=== PATIENT | male | born 1935 | race African-American/Black ===

== ENCOUNTER 2020-12-02 19:23 | Observation (INO) | payer MEDICARE ==
[~2020-12-02] VITALS: Ht 188 cm; Wt 81.6 kg
[~2020-12-02 19:23] MED LIST: ASPIRIN81 MG PO; DONEPEZIL HCL10 MG PO; ERGOCALCIF50000 UNIT PO; FLOMAX0.4 MG PO; GLUCOPHAGE1000 MG PO; KEFLEX500 MG PO; MAGNESIUM OXID500 MG PO; MIRALAX17 GM PO; NIASPAN1000 MG PO; NORVASC5 MG PO; PROPECIA1 MG PO; PROTONIX40 MG PO; VITAMIN C500 M1 PO; ZOCOR20 MG PO
[2020-12-02 19:52] VITALS: BP 101/53
[2020-12-02 19:57] LABS: BASOPHILS 0.3 % (0-2); EOSINOPHILS 1.5 % (0-7); HEMATOCRIT 33.4 % (42.0-54.0); HEMOGLOBIN 10.9 g/dL (13.5-17.5); IMMATURE GRANULOCYTES 0.1 % (0-5); LYMPHOCYTE ABS# 1.14 10x3/uL (1.32-3.57); LYMPHOCYTES 16.7 % (15-50); MCH 30.4 pg (26.0-34.0); MCHC 32.6 g/dL (31.0-37.0); MCV 93.3 fL (80.0-100.0); MEAN PLATELET VOLUME 9.9 fL (7.4-10.4); MONOCYTES 8.5 % (2-11); NEUTROPHIL ABS# 4.99 10x3/uL (1.78-5.38); NEUTROPHILS 72.9 % (40-80); RBC 3.58 10x6/uL (4.20-6.10); RDW 14.2 % (11.5-14.5); WBC 6.8 10x3/uL (4.8-10.8)
[2020-12-02 20:01] LABS: PLATELET COUNT 145 10x3/uL (130-400)
[2020-12-02 20:04] LABS: INR 1.11 (0.85-1.17); PROTIME 13.3 SECONDS (11.6-15.0)
[2020-12-02 20:05] LABS: CALC OSMOLALITY 287 mosm/kg (275-300); CALCIUM 10.1 mg/dL (8.5-10.1); CARBON DIOXIDE 23.4 mmol/L (21.0-32.0); CHLORIDE - SERUM 106 mmol/L (98-107); CREATININE - SERUM 1.3 mg/dL (0.6-1.3); GLUCOSE 136 mg/dL (74-106); POTASSIUM - SERUM 3.7 mmol/L (3.5-5.1); SODIUM 143 mmol/L (136-145); UREA NITROGEN 15 mg/dL (7-18); eGFR NON AFRICAN AMERICAN 55 mL/min (90-120)
[2020-12-02 20:21] LABS: ALKALINE PHOSPHATASE 47 U/L (30-120); ALT (SGPT) 12 U/L (10-68); BILIRUBIN - TOTAL 0.32 mg/dL (0.2-1.3); CKMB 0.4 U/L (0.0-3.6); CREATINE KINASE 31 UL (21-232); MAGNESIUM - SERUM 1.4 mg/dL (1.8-2.4); PRO BNP 334 pg/mL (0-450); THYROID STIMULATING HORMONE 2.23 uIU/mL (0.36-3.74); TROPONIN-I < 0.017 ng/mL (0.000-0.060)
[2020-12-02 20:27] LABS: D-DIMER-QUANTITATIVE 0.3 ug/mLFEU (0.20-0.54)
[2020-12-02 23:56] VITALS: BP 132/57
[2020-12-03 00:12] VITALS: BP 132/57; Ht 188 cm; Wt 81.6 kg
--- NOTE | 2020-12-03 04:15 | NUR ---
PT PRESSED CL. STATED HE NEEDED A BED CHANGE BC HE HAD AN INCONTINENT VOID. SCANT AMOUNT OF BRIGHT RED BLOOD NOTED ON SHEET NEAR BUTTOX. NO PRESSURE SORES OR WOUNDS OF ANY KIND OBSERVED. OCCULT BLOOD STOOL IS ORDERED. WILL CONT TO MONITOR.
[2020-12-03 05:35] LABS: BASOPHILS 0.1 % (0-2); EOSINOPHILS 0.7 % (0-7); HEMATOCRIT 33.7 % (42.0-54.0); HEMOGLOBIN 11.1 g/dL (13.5-17.5); IMMATURE GRANULOCYTES 0.1 % (0-5); LYMPHOCYTE ABS# 1.23 10x3/uL (1.32-3.57); LYMPHOCYTES 16.7 % (15-50); MCH 30.3 pg (26.0-34.0); MCHC 32.9 g/dL (31.0-37.0); MCV 92.1 fL (80.0-100.0); MEAN PLATELET VOLUME 10.3 fL (7.4-10.4); MONOCYTES 9.1 % (2-11); NEUTROPHIL ABS# 5.39 10x3/uL (1.78-5.38); NEUTROPHILS 73.3 % (40-80); PLATELET COUNT 162 10x3/uL (130-400); RBC 3.66 10x6/uL (4.20-6.10); RDW 14.2 % (11.5-14.5); RETIC 1.28 % (0.45-2.28); WBC 7.4 10x3/uL (4.8-10.8)
[2020-12-03 05:37] VITALS: BP 128/69
[2020-12-03 05:55] VITALS: BP 122/69
[2020-12-03 06:30] LABS: ALBUMIN 3.1 g/dL (3.4-5.0); ANION GAP 11.7 mmol/L (8-16); BILIRUBIN - TOTAL 0.33 mg/dL (0.2-1.3); CALCIUM 9.5 mg/dL (8.5-10.1); CARBON DIOXIDE 27.7 mmol/L (21.0-32.0); CREATININE - SERUM 1.1 mg/dL (0.6-1.3); MAGNESIUM - SERUM 1.2 mg/dL (1.8-2.4); POTASSIUM - SERUM 3.4 mmol/L (3.5-5.1); PROTEIN - SERUM 6.3 g/dL (6.4-8.2)
[2020-12-03 06:32] LABS: % SATURATION 31 % (15-55); IRON 61 ug/dl (35-150); TOTAL IRON BIND CAPACITY 195 ug/dl (260-445); UNSAT IRON BIND CAPACITY 134 ug/dl (150-375)
--- NOTE | 2020-12-03 07:40 | NUR ---
LYING IN BED, AWAKE/ALERT/CONFUSED, ENCOURAGED TO T/R SELF FREQUENTLY, INCONT OF B/B WITH USE OF INCONT PADS AND A CONDOM CATHETERK, DENIES PAIN/OTHER DISCOMFORT AT THIS TIME, CALL LIGHT/PHONE/WATER WITHIN REACH, NO S/S OF ACUTE DISTRESS OBSERVED.
[2020-12-03 07:54] VITALS: BP 90/52
[2020-12-03] MEDS ORDERED: K-TAB10 MEQ PO (10:58)
[2020-12-03] MEDS ORDERED: MAG-OXIDE400 MG PO (10:59)
--- NOTE | 2020-12-03 11:28 | MORECARE ---
CASE MANAGEMENT DISCHARGE SUMMARY PATIENT: SILVA GONZALES UNIT: [id number] ADM DATE: 12/02/20 AGE: 85 : 34 SEX: M ROOM/BED: D.211 AUTHOR: SERGIO PERERA PHYSICIAN: REFERRING PHYSICIAN: PARUL PRIETO DO DATE OF SERVICE: 12/03/20 Discharge Plan Patient Name: SILVA GONZALES [facility] : 1935 Planned Disposition: Home Anticipated Discharge Date: Discharge Date: Expected LOS: Initial Reviewer: [email or web address] Initial Review Date: 12/03/2020 Generated: 12/03/20 12:28 pm External Providers External Provider: [facility] [facility] Next Contact Date: Service Request Date: Service Type: Resolution: Reviewer: Comments: Patient Name: SILVA GONZALES Page 05509 at 1128 All edits/amendments must be made on the electronic document DICTATION DATE: 12/03/20 1128 RETAIL SOLAR ADVISOR: HERB 12/03/20 1128 RPT#: [id number] DC DATE: STATUS: ADM IN [facility] [address] [place] [address] END OF REPORT
--- NOTE | 2020-12-03 11:43 | MORECARE ---
CASE MANAGEMENT DISCHARGE SUMMARY PATIENT: SILVA GONZALES UNIT: [id number] ADM DATE: 12/02/20 AGE: 85 : 34 SEX: M ROOM/BED: D.2112 AUTHOR: SERGIO PERERA PHYSICIAN: REFERRING PHYSICIAN: PARUL PRIETO DO DATE OF SERVICE: 12/03/20 Discharge Plan Patient Name: SILVA GONZALES Facility: [facility]:[place] : 1935 Planned Disposition: Home with Home Health Anticipated Discharge Date: Discharge Date: Expected LOS: Initial Reviewer: [email or web address] Initial Review Date: 12/03/2020 Generated: 12/03/20 12:43 pm Comments DCP- Discharge Planning Updated by [email or web address]: Aniya Pabon on 12/03/20 10:[address] Patient Name: SILVA GONZALES Admission Status: ER Accout number: [id number] Admission Date: 12-02-2020 : 1935 Admission Diagnosis: Attending: PARUL PRIETO Current LOS: 1 Anticipated DC Date: Planned Disposition: Home Primary Insurance: [employer] CHOICE PPO MCR ADVANT Discharge Planning Comments: CM spoke with Lexus Ford, patient's daughter about discharging today. I informed her that the physician has ordered a palliative care consult. She states that she does not want to talk about that with me that she has been speaking with [facility] nurse about hospice. I informed her there was a difference between hospice and palliative care. She agrees with discharge today via ambulance service and would like a call when they know approximate time of discharge. Nurse to call [phone]. I gave adolescent coordinator the number. I called [facility] and spoke with Lala, patient is current with them. I informed patient is in OBS status and going home today and would like them to speak with daughter about their palliative care program. CM will continue to follow and assist with discharge planning/needs. Fire Engine Operator: Aniya Pabon Last DP export: 12/03/20 10:28 a Patient Name: SILVA GONZALES Page [phone] at 1143 All edits/amendments must be made on the electronic document DICTATION DATE: 12/03/20 1143 TESTER SEMICONDUCTOR PACKAGES: HERB 12/03/20 1143 RPT#: [id number] DC DATE: STATUS: ADM IN [facility] [address] [place] [address] END OF REPORT
[2020-12-03 12:00] VITALS: BP 128/60
--- NOTE | 2020-12-03 13:57 | NUR ---
EMS HERE TO TRANSPORT HOME.
--- NOTE | 2020-12-06 07:43 | MORECARE ---
CASE MANAGEMENT DISCHARGE SUMMARY PATIENT: SILVA GONZALES UNIT: [id number] ADM DATE: 12/02/20 AGE: 85 : 34 SEX: M ROOM/BED: D.2112 AUTHOR: SERGIO PERERA PHYSICIAN: REFERRING PHYSICIAN: PARUL PRIETO DO DATE OF SERVICE: 12/06/20 Discharge Plan Patient Name: SILVA GONZALES Facility: [facility]:[place] : 1935 Planned Disposition: Home with Home Health Anticipated Discharge Date: Discharge Date: 12/03/2020 Expected LOS: Initial Reviewer: [email or web address] Initial Review Date: 12/03/2020 Generated: 12/06/20 8:42 am Comments DCP- Discharge Planning Updated by [email or web address]: Aniya Pabon on 12/03/20 10:[address] Patient Name: SILVA GONZALES Admission Status: ER Accout number: [id number] Admission Date: 12-02-2020 : 1935 Admission Diagnosis: Attending: PARUL PRIETO Current LOS: 1 Anticipated DC Date: Planned Disposition: Home Primary Insurance: [employer] CHOICE PPO MCR ADVANT Discharge Planning Comments: CM spoke with Lexus Ford, patient's daughter about discharging today. I informed her that the physician has ordered a palliative care consult. She states that she does not want to talk about that with me that she has been speaking with [facility] nurse about hospice. I informed her there was a difference between hospice and palliative care. She agrees with discharge today via ambulance service and would like a call when they know approximate time of discharge. Nurse to call [phone]. I gave flower stripper the number. I called [facility] and spoke with Lala, patient is current with them. I informed patient is in OBS status and going home today and would like them to speak with daughter about their palliative care program. CM will continue to follow and assist with discharge planning/needs. Application Spec: Aniya Pabon Last DP export: 12/03/20 10:43 a Patient Name: SILVA GONZALES Page 08873 at 0743 All edits/amendments must be made on the electronic document DICTATION DATE: 12/06/2042 RD PROJECT MANAGER: HERB 12/06/2042 RPT#: [id number] DC DATE:12/03/20 STATUS: DIS IN [facility] [address] [place] [address] END OF REPORT
== END 2020-12-03 12:30 | disposition home or self-care (01) ==
LOC: D.ER 19:23 → OBSVTIME 21:05 → D.EDHOLD 21:05 → D.M2 21:05
PROVIDERS: Family Medicine; ADMIT Family Medicine; ATTEND Family Medicine
DX: R55 Syncope and collapse (principal); E83.42 Hypomagnesemia; G30.9 Alzheimer's disease, unspecified; F02.80 Dementia in other diseases classified elsewhere, unspecified severity, without behavioral disturbance, psychotic disturbance, mood disturbance, and anxiety; R11.2 Nausea with vomiting, unspecified; Z95.0 Presence of cardiac pacemaker; N40.0 Benign prostatic hyperplasia without lower urinary tract symptoms; I10 Essential (primary) hypertension; K21.9 Gastro-esophageal reflux disease without esophagitis; Z79.84 Long term (current) use of oral hypoglycemic drugs; E11.65 Type 2 diabetes mellitus with hyperglycemia; D64.9 Anemia, unspecified

== ENCOUNTER 2020-12-11 16:59 | Inpatient (IN) | payer MEDICARE ==
[~2020-12-11] VITALS: Ht 188 cm; Wt 62.2 kg
--- NOTE | ~2020-12-11 | HEMODYNAMI ---
PATIENT:SILVA GONZALES MEDICAL RECORD: [id number] : 33 LOCATION:[facility] ADMISSION DATE: 12/12/20 Generatedon:113:52 Patient name: SILVA GONZALES Patient #: [id number] SSN: [id number] : 1935 Date of study: 12/14/2020 Page: Of Hemodynamic Procedure Report Patient Data Patient Demographics Procedure consent was obtained First Name: SILVA Gender: Male Last Name: CHRISTIAN : 1935 Middle Initial: MARY Age: 85 year(s) Patient #: [id number] Race: Black SSN: [id number] Additional ID: [id number] Contact details [address]: [address] [place] [address] State: [place] City: [place] Zip code: [address] Past Medical History Allergies: No known allergies Admission Admission Data Admission Date: 12/12/2020 Admission Time: 17:24 Room #: D. Lab Results Lab Result Date: 12/14/2020 Lab Result Time: 0:00 Biochemistry Name Units Result Min Max BUN mg/dl 10 --(-*--)-- 7 18 Creatinine mg/dl 0.9 --(-*--)-- 0.6 1.3 eGFR ml/min 90 --(*---)-- 90 120 AM CBC Name Units Result Min Max Hemoglobin g/dl 10 *-(----)-- 13.5 17.5 Procedure Procedure Types Cath Procedure Diagnostic Procedure PPM/ICD Permanent Pacer Lead Repos. Sedation Charges Moderate Sedation 25-39 minutes Procedure Description Procedure Date Procedure Date: 12/14/2020 Procedure Start Time: 13:18 Procedure End Time: 13:49 Procedure Staff Name Function Adriel Driver MD Performing Physician Nannette Bae RT Monitor Clementine Torres RT Scrub Ab Leach RN Nurse Miguel Hickman MD Assisting physician Procedure Data Cath Procedure Fluoroscopy Diagnostic fluoroscopy Total fluoroscopy Time: 3.9 time: 3.9 min min Diagnostic fluoroscopy Total fluoroscopy dose: dose: 48.57 mGy 48.57 mGy Estimated blood loss: 10 ml Procedure Complications No complications Procedure Medications Medication Administration Route Dosage 0.9% NaCl I.V. 100 ml/hr Oxygen etCO2 Nasal cannula 2 l/min Lidocaine 1% added to field 20 Ancef (1Gm/50ml NS) I.V.P.B 1 g Ancef Irrigation 1 g (1gm/500ml NS) Versed I.V. 1 mg Fentanyl I.V. 50 mcg Hemodynamics Rest HGB: 10 (g/dl) Heart Rate: 89 (bpm) Snapshots Pre Cath Intra NCS Post Cath Vital Signs Time Heart Resp SPO2 etCO2 NIBP (mmHg) Rhythm Pain Sedation Rate (ipm) (%) (mmHg) Status Level (bpm) 13:00:23 90 17 99 0 143/79(113) NSR 0 (11) 10(A) , No pain 13:04:37 63 13 100 32.4 129/71(109) NSR 0 (11) 10(A) , No pain 13:08:43 95 19 100 33.2 130/80(114) NSR 0 (11) 10(A) , No pain 13:12:51 70 12 100 28.7 128/75(110) NSR 0 (11) 10(A) , No pain 13:17:01 61 15 100 31.7 124/68(99) NSR 0 (11) 10(A) , No pain 13:21:00 107 14 98 34.7 137/90(111) NSR 0 (11) 9(A) , No pain 13:25:13 58 14 100 20.4 133/66(105) NSR 0 (11) 9(A) , No pain 13:29:22 68 14 99 30.2 124/70(104) NSR 0 (11) 9(A) , No pain 13:33:32 53 11 99 31.7 128/61(107) NSR 0 (11) 9(A) , No pain 13:37:42 101 12 100 30.1 122/66(101) Paced 0 (11) 9(A) , No pain 13:41:42 112 13 98 30.9 122/84(99) Paced 0 (11) 9(A) , No pain 13:45:44 97 12 99 29.4 118/81(100) Paced 0 (11) 9(A) , No pain 13:49:47 78 12 30.2 119/74(96) Paced 0 (11) 9(A) , No pain Medications Time Medication Route Dose Verified Delivered Reason Notes Effectiv eness by by 13:09:42 0.9% NaCl I.V. 100 Ab Ab for low 02 ml/hr Lorigan Lorigan sats RN RN 13:09:50 Oxygen etCO2 2 Ab Ab for low 02 Nasal l/min Lorigan Lorigan sats cannula RN RN 13:10:03 Lidocaine added 20ml Ab Ab for local 1% to vial Lorigan Lorigan anesthetic field x2 RN RN 13:10:16 Ancef I.V.P.B 1 g Ab Ab Per (1Gm/50ml Lorigan Lorigan physician NS) RN RN 13:10:42 Ancef Topical 1 g Ab Ab used for Irrigation added Lorigan Lorigan procedure (1gm/500ml to the RN RN NS) field 13:10:58 Versed I.V. 1 mg Ab Ab for Lorigan Lorigan sedation RN RN 13:11:13 Fentanyl I.V. 50 Ab Ab for mcg Lorigan Lorigan sedation RN armature rewinder Log Time Note 12:39:55 Informed consent obtained and on chart 12:40:27 Procedure Status PPM/ Gen Change/ Lead Revision/ Temp. 12:40:28 Time tracking: Regular hours (M-F 7:00 - 5:00) 12:40:31 Plan of Care:Comfort level will be maintained., Respiratory function will remain adequate., Patient/ family verbilizes understanding of procedure., Procedure tolerated without complication., Recovers from procedure without complications.. 12:40:33 Ab Leach RN sent for patient. Start room use. 12:40:50 Patient allergic to No known allergies 12:59:10 Warm blankets applied, and karel hugger turned on for patient comfort. 12:59:11 Correct patient and procedure confirmed by team. 12:59:11 ECG and BP/O2 sat monitors applied to patient. 12:59:12 Vital chart was started 12:59:13 Baseline sample Acquired. 12:59:20 Rhythm: paced 12:59:23 Full Disclosure recording started 12:59:41 H&P Date Dictated: 12/14/2020 Within 30 days and on chart.. 12:59:43 Pre-procedure instructions explained to patient. 12:59:46 Family unavailable. 12:59:50 Patient NPO since Midnight. 12:59:54 Is the patient allergic to Iodine/contrast media? N/A. 13:00:16 Is patient on blood thinner?No 13:00:18 Patient diabetic? No. 13:00:25 Snore? Yes 13:00:27 Sleep apnea? No 13:00:29 Sticks out tongue? No 13:00:34 Dentures? No ? 13:00:44 IV patent on arrival in left forearm with 0.9% NaCl at [facility]. 13:00:49 Lab results completed and on chart. 13::23 Lab Result : BUN 10 mg/dl 13::23 Lab Result : Creatinine 0.9 mg/dl 13::23 Lab Result : eGFR AM 90 ml/min 13::23 Lab Result : Hemoglobin 10 g/dl 13:01:57 Left chest area was prepped with dura-prep and draped in sterile fashion 13:01:58 Alarms reviewed by R. N. 13:01:58 Sharps counted by scrub and verified by R.N. 13:01:59 Physician paged 13:02:34 Physician arrived 13:02:36 --------ALL STOP TIME OUT------ 13:02:37 Final Timeout: patient, procedure, and site verified with staff and physician. All members of the team are in agreement. 13:09:42 0.9% NaCl 100 ml/hr I.V. was administered by Ab Leach RN; for low 02 sats; Verbal order read back and verified. 13:09:50 Oxygen 2 l/min etCO2 Nasal cannula was administered by Ab Leach RN; for low 02 sats; Verbal order read back and verified. 13:10:03 Lidocaine 1% 20ml vial x2 added to field was administered by Ab Leach RN; for local anesthetic; Verbal order read back and verified. 13:10:16 Ancef (1Gm/50ml NS) 1 g I.V.P.B was administered by Ab Leach RN; Per physician; Verbal order read back and verified. 13:10:42 Ancef Irrigation (1gm/500ml NS) 1 g Topical added to the field was administered by Ab Leach RN; used for procedure; Verbal order read back and verified. 13:10:58 Versed 1 mg I.V. was administered by Ab Leach RN; for sedation; Verbal order read back and verified. 13:11:13 Fentanyl 50 mcg I.V. was administered by Ab Leach RN; for sedation; Verbal order read back and verified. 13:11:59 Left chest site verified by team. 13:12:08 Fire Safety Assessment: A--An alcohol-based skin anteseptic being used preoperatively., C--Open oxygen or nitrous oxide is being used., D--An ESU, laser, or fiber-optic light is being used. 13:12:12 Physical assessment completed. ASA score P 3 - A patient with severe systemic disease as per Adriel Driver MD. 13:12:17 Sedation plan: IV Moderate Sedation Medication:Versed, Fentanyl 13:12:32 Use device set JENNIFER PPM 13:12:38 2-0 Ticron Multipack ([id number]) opened to sterile field. 13:12:38 3-0 Vicryl Single Pack [id number] opened to sterile field. 13:12:39 5-0 Monocryl PS2 [id number] opened to sterile field. 13:12:40 Cautery Tip Mandarin Teacher opened to sterile field. 13:12:41 Cautery Pushbutton Pencil opened to sterile field. 13:12:42 Mepilex Dressing ([id number]) opened to sterile field. 13:17:19 Procedure started. 13:18:26 Medtronic account maintenance representative Rudi Americo present for procedure. 13:18:31 Grounding pad site Left thigh. 13:18:33 Grounding pad site free from injury. 13:18:41 Lidocaine 1% was administered to left subclavicular area by Miguel Hickman MD . 13:18:44 Incision made to left subclavicular area. 13:21:55 Generator pocket made/opened. 13:23:46 Ventricular lead repositioned. 13:23:51 Atrial lead repositioned. 13:24:30 Ventricular lead tested. 13:24:34 Atrial lead tested. 13:35:26 PPM Dual was attached to lead(s) and inserted into pocket. 13:35:36 Device pocket was irrigated with Ancef. 13:35:44 Ventricular lead attachment was completed with 2-0 silk. 13:35:49 Atrial lead attachment was completed with 2-0 silk. 13:35:54 Generator was sutured in place with 2-0 silk. 13:39:07 Parameters-- Generator: Mode: DDDR. Lower Rate: 60bpm. Upper Rate: 120bpm. 13:40:20 Parameters--Ventricular P/R Wave: 5.5mV. Current: .5mA; Threshold: .5V; Impedence: 751OHMS. 13:40:57 Parameters--Atrial P/R Wave: 1.2mV. Current: .12mA; Threshold: .7V; Impedence: 387OHMS. 13:41:24 Lt Chest incision was dressed with Mepilex dressing. 13:45:22 Procedure ended.(Physican Out) 13:45:38 Fluoroscopy time 03.90 minutes. 13:45:49 Fluoroscopy dose: 48.57 mGy 13:45:49 Flurop Dose total: 48.57 13:45:54 Dose Area Product 738 mGy/cm. 13:46:46 Insertion/operative site no bleeding no hematoma. 13:47:08 Post-procedure physical assessment completed. ASA score P 3 - A patient with severe systemic disease as per Adriel Driver MD. 13:47:13 Post procedure rhythm: paced 13:47:17 Estimated blood loss: 10 ml 13:47:35 Patient needs reinforcement of post procedure teaching. 13:48:20 Procedure type changed to Cath procedure, Diagnostic procedure, PPM/ICD, Permanent Pacer Lead Repos., Sedation Charges, Moderate Sedation 25-39 minutes 13:48:55 Procedure and supply charges have been captured, reviewed, submitted and are correct. 13:49:29 Procedure Complication : No complications 13:49:32 Vital chart was stopped 13:49:40 Operative report dictated upon procedure completion. 13:49:42 See physician's report for complete and final results. 13:49:44 Report given to [facility]. 13:49:47 Patient transfered to [facility] with Bed. 13:49:49 Procedure ended. 13:49:49 Full Disclosure recording stopped 13:49:52 End room use (Document Last) 13:49:52 End room use (Document Last) 13:50:42 End room use (Document Last) 13:51:20 End room use (Document Last) Device Usage Item Name Manufacture Quantity Catalog Hospital Part Current Minimal Lot# / Number Charge Number Stock Stock Serial# Code 2-0 Ticron Ethicon 8 [id number] 65584 [id number] 5 Multipack ([id number]) 3-0 Vicryl Ethicon 1 [id number] 741531 112724 720683 5 Single Pack [id number] 5-0 Monocryl Ethicon 1 Y495G 668084 703732 049419 5 PS2 Y495G Cautery Tip Microtek 1 [id number] 706362 199084 997684 5 Mandarin [employer] Cautery Microtek 1 [id number] 193454 34897 354104 5 Pushbutton [employer] Pencil Mepilex Cardinal 1 [id number] 591026 023112 905338 5 [employer] (790645) Signature Audit [place] Stage Time Signature Unsigned Intra-Procedure 12/14/2020 Nannette Bae 1:50:42 PM RT(R) Intra-Procedure 12/14/2020 Adriel Johnson 1:51:20 PM Lucien JOHNSON Intra-Procedure 12/14/2020 Ab 1:52:44 PM Haylee [place] [place] [address] [place] [address]
--- NOTE | ~2020-12-11 | OP ---
PATIENT NAME: SILVA GONZALES MEDICAL RECORD: [id number] :[birth year] LOCATION:D.MS [facility] ADMISSION DATE:12/12/20 SURGEON: MANDY RODRIGUEZ MD DATE OF OPERATION: 12/14/2020 PREOPERATIVE DIAGNOSES: 1. Displaced pacemaker leads. 2. Sick sinus syndrome. 3. Dementia. POSTOPERATIVE DIAGNOSES: 1. Displaced pacemaker leads. 2. Sick sinus syndrome. 3. Dementia. PROCEDURE: Revision of left subclavian vein leads. SURGEON: Mandy Rodriguez MD CO-SURGEON: Adriel Corea MD DESCRIPTION OF PROCEDURE: The patient's left chest was prepped and draped in sterile fashion. A 20 mL of 1% lidocaine with epinephrine was infused into the surrounding tissues. Transverse incision was made on the left superior lateral chest and a subcutaneous pouch was made overlying the pacemaker generator. The generator was freed up from its sutures and was eviscerated through the wound. We then freed up the sutures that were present on the 2 leads and disconnected the leads from the generator. At this point, Dr. Corea repositioned the leads appropriately until they were functioning well. Once the leads were noted to be in good position in the atrium and ventricle, then, they were sutured down to the pectoral fascia with interrupted 2-0 Ti-Cron. The leads were affixed to the pacemaker, which was placed into the subcutaneous pouch and sutured down with interrupted 2-0 TiCron. The wound bed was irrigated out with antibiotic solution. The subcutaneous tissues were reapproximated with interrupted 3-0 Vicryl and the skin was closed with running subcutaneous 5-0 Monocryl. COMPLICATIONS: None. CONDITION: Stable. ANESTHESIA: Local MAC. BLOOD LOSS: 30 mL. TRANSINT:[id number] Voice Confirmation ID: [id number] DOCUMENT ID: [id number] MANDY RODRIGUEZ MD CC: [id number] DICTATION DATE: 12/14/20 1348 WOOD CHOPPER: 12/14/20 1843 ADM IN [place] [id number] [place] [id number]
[~2020-12-11 16:59] MED LIST changes: +K-TAB10 MEQ PO; +MAG-OXIDE400 MG PO
[2020-12-11 18:17] LABS: BASOPHILS 0.1 % (0-2); EOSINOPHILS 1.6 % (0-7); HEMATOCRIT 36.2 % (42.0-54.0); HEMOGLOBIN 11.9 g/dL (13.5-17.5); IMMATURE GRANULOCYTES 0.1 % (0-5); LYMPHOCYTE ABS# 0.94 10x3/uL (1.32-3.57); LYMPHOCYTES 13.9 % (15-50); MCHC 32.9 g/dL (31.0-37.0); MCV 94.3 fL (80.0-100.0); MEAN PLATELET VOLUME 10.8 fL (7.4-10.4); MONOCYTES 9.2 % (2-11); NEUTROPHIL ABS# 5.05 10x3/uL (1.78-5.38); NEUTROPHILS 75.1 % (40-80); PLATELET COUNT 173 10x3/uL (130-400); RBC 3.84 10x6/uL (4.20-6.10); RDW 15.1 % (11.5-14.5); WBC 6.7 10x3/uL (4.8-10.8)
--- NOTE | 2020-12-11 18:38 | NUR ---
VENIPUNCTURE PERFORMED AND SENT WITH SENIOR FINANCIAL REPORTING ACCOUNTANT.
[2020-12-11 18:45] VITALS: BP 117/60
[2020-12-11 18:50] LABS: CALC OSMOLALITY 279 mosm/kg (275-300); CALCIUM 10.3 mg/dL (8.5-10.1); CARBON DIOXIDE 25.1 mmol/L (21.0-32.0); CHLORIDE - SERUM 103 mmol/L (98-107); CREATININE - SERUM 1.3 mg/dL (0.6-1.3); POTASSIUM - SERUM 3.9 mmol/L (3.5-5.1); SODIUM 138 mmol/L (136-145); UREA NITROGEN 18 mg/dL (7-18); eGFR NON AFRICAN AMERICAN 55 mL/min (90-120)
[2020-12-11 18:51] LABS: APTT 25.2 SECONDS (22.8-39.4); INR 1.06 (0.85-1.17); PROTIME 12.8 SECONDS (11.6-15.0)
[2020-12-11 18:53] LABS: GLUCOSE 129 mg/dL (74-106)
[2020-12-11 19:07] LABS: ALBUMIN 3.3 g/dL (3.4-5.0); ALKALINE PHOSPHATASE 47 U/L (30-120); ALT (SGPT) 15 U/L (10-68); BILIRUBIN - TOTAL 0.37 mg/dL (0.2-1.3); CKMB 0.3 U/L (0.0-3.6); CREATINE KINASE 33 UL (21-232); MAGNESIUM - SERUM 1.3 mg/dL (1.8-2.4); PROTEIN - SERUM 6.6 g/dL (6.4-8.2); TROPONIN-I < 0.017 ng/mL (0.000-0.060)
[2020-12-11 19:38] LABS: BILIRUBIN NEGATIVE (NEGATIVE); KETONE SMALL mg/dL (NEGATIVE); NITRITE NEGATIVE (NEGATIVE); UROBILINOGEN NORMAL mg/dL (< 2)
[2020-12-11 19:42] LABS: WHITE CELLS - URINE 0-5 HPF (0-1)
[2020-12-11 19:43] LABS: AMORPHOUS SEDIMENT MODERATE LPF (NONE SEEN); BACTERIA FEW HPF (NONE SEEN); SQUAMOUS EPITHELIAL 0-5 HPF (0-4)
[2020-12-12] VITALS (8 sets, daily range): BP systolic 97–141; BP diastolic 59–77; BMI 17.6
--- NOTE | 2020-12-12 01:18 | NUR ---
REPORT TO MAIRA
--- NOTE | 2020-12-12 04:00 | NUR ---
Assumed care of pt at 0140 when pt arrived on unit on stretcher transported by ED nurse. Pt Alert and oriented to self. ED staff told this nurse she brought him up right away when his heart rate went Anil to 40 and after calling Rasta for pacer check. Report for pacer check recieved back during transfer from stretcher to bed in pt room. Pt is calm and denies pain/discomfort but, unable to assist with transfer r/t weakness. Pt is a poor historian and much of the information for assessment obtained from prior records and staff in ED. Meditron report called to LEDY Beyer o/c with new order for Cardiology consult obtained and 12 lead ECG requested before calling. Meditron litigation claim representative also called and stated he would be calling the Owner Consulting Engineer. Ezekieltron birdie came to floor and this nurse was told Ventricular lead was turned off and Atrial lead was increased to full. Tech did speak with o/c for Cardiology after and this nurse had spoken with same in between. Tele also ordered for this pt and he has remained 60 and SR since the Tech adjusted pacemaker. Pt in bed resting at this time with IV fluids running per patent IV. Pt continues to deny any pain/discomfort.
[2020-12-12 07:02] LABS: ALBUMIN 2.7 g/dL (3.4-5.0); ANION GAP 12.3 mmol/L (8-16); BILIRUBIN - TOTAL 0.29 mg/dL (0.2-1.3); CALCIUM 9.4 mg/dL (8.5-10.1); CARBON DIOXIDE 26.2 mmol/L (21.0-32.0); CREATININE - SERUM 1.1 mg/dL (0.6-1.3); POTASSIUM - SERUM 3.5 mmol/L (3.5-5.1); PROTEIN - SERUM 5.5 g/dL (6.4-8.2)
[2020-12-12 07:29] LABS: BASOPHILS 0.2 % (0-2); EOSINOPHILS 1.8 % (0-7); HEMATOCRIT 33.7 % (42.0-54.0); HEMOGLOBIN 11.2 g/dL (13.5-17.5); IMMATURE GRANULOCYTES 0.2 % (0-5); LYMPHOCYTE ABS# 1.45 10x3/uL (1.32-3.57); LYMPHOCYTES 23.2 % (15-50); MCHC 33.2 g/dL (31.0-37.0); MCV 93.4 fL (80.0-100.0); MEAN PLATELET VOLUME 10.2 fL (7.4-10.4); MONOCYTES 7.8 % (2-11); NEUTROPHIL ABS# 4.19 10x3/uL (1.78-5.38); NEUTROPHILS 66.8 % (40-80); PLATELET COUNT 181 10x3/uL (130-400); RBC 3.61 10x6/uL (4.20-6.10); RDW 15.1 % (11.5-14.5); WBC 6.3 10x3/uL (4.8-10.8)
[2020-12-12 08:05] LABS: APTT 29.1 SECONDS (22.8-39.4); INR 1.09 (0.85-1.17); PROTIME 13.1 SECONDS (11.6-15.0)
[2020-12-12 08:39] LABS: MAGNESIUM - SERUM 1.2 mg/dL (1.8-2.4)
[2020-12-12 08:41] LABS: PHOSPHOROUS 1.5 mg/dL (2.5-4.9)
--- NOTE | 2020-12-12 14:53 | CN ---
PATIENT NAME:SILVA GONZALES MEDICAL RECORD: [id number] : [birth year] LOCATION:D.MS [facility] ADMIT DATE: 12/11/20 ACCOUNT: [id number] CONSULTING PHYSICIAN: LETA BENITO MD REFERRING PHYSICIAN: LIDIA AARON MD DATE OF CONSULTATION: 12/12/2020 HISTORY OF PRESENT ILLNESS: The patient is an 85-year-old black Faroese male with history of sick sinus syndrome -- status post a permanent pacemaker placement, and chronic dementia, who was admitted with some syncope episodes. The patient was noted to have bradycardia in the 30-40's with pacemaker malfunction. The patient's pacemaker evaluated via Medtronic rep. I asked to evaluate from a cardiovascular standpoint. PAST MEDICAL HISTORY: Significant for; 1. Sick sinus syndrome -- permanent pacemaker -- pacemaker malfunction. 2. Bradycardia. 3. Syncope episodes. 4. Hypertension. 5. Chronic dementia. PHYSICAL EXAMINATION: GENERAL: Elderly black male, sitting, in no apparent distress. VITAL SIGNS: Blood pressure 140s over 70s, pulse 90s (regular). HEENT: Sclerae are muddy; conjunctivae pink. NECK: Supple; no appreciated JVD. HEART: Has got a regular rhythm and rate, II/ systolic outflow murmur. LUNGS: Clear bilaterally. Chest wall, left significant for pacemaker generator. ABDOMEN: Benign. EXTREMITIES: Negative for edema. NEUROLOGIC: Nonfocal. LABORATORY DATA: Hemoglobin and hematocrit 11.2 and 33.7, platelet count is 181. Sodium 143, potassium 3.5, BUN 18, creatinine 1.1, troponin 0.017 (negative). Telemetry, normal sinus rhythm at 95 beats per minute. MEDICATIONS: Outpatient: 1. Aricept 10 mg daily. 2. Flomax 0.4 mg daily. 3. Zocor 20 mg daily. 4. Aspirin 81 mg daily. 5. Norvasc 5 mg daily. ASSESSMENT AND PLAN: 1. Sick sinus syndrome -- permanent pacemaker -- pacemaker malfunction. 2. Syncope episodes. 3. Hypertension. 4. Hyperlipidemia. 5. Chronic dementia. PLAN: Continue current medical management at this time. The patient's pacemaker evaluated and reprogrammed for the time being in view of a Medtronic CONSULT REPORT [id number] SILVA GONZALES rep. The patient will be scheduled for further evaluation and possible lead replacement or insertion in the morning by Dr. Corea. Further recommendations as clinically indicated. Thank you for allowing me to participate in the care of this patient. TRANSINT:[id number] Voice Confirmation ID: [id number] DOCUMENT ID: [id number] LETA BENITO MD at 1453 CC: [id number] DICTATION DATE: 12/12/20 09 GAS ENGINE OPERATOR GENERATORS: 12/12/20 1436 ADM IN [place] [address] [place] [address]
--- NOTE | 2020-12-13 03:02 | NUR ---
HAS RESTED WELL THIS SHIFT. NO COMPLAINTS OF CHEST PAIN OR DISCOMFORT VOICED. TELEMETRY SHOWS PACED RHYTHM AT 60 BPM. MUCH MORE ALERT TONIGHT. MORE TALKATIVE. ENCOURAGED TO CALL FOR ASSISTANCE NEEDED. CALL LIGHT IN EASY REACH. SAFETY ROUNDS MADE.
[2020-12-13 06:51] LABS: BASOPHILS 0.2 % (0-2); HEMATOCRIT 30.8 % (42.0-54.0); HEMOGLOBIN 10.4 g/dL (13.5-17.5); IMMATURE GRANULOCYTES 0.2 % (0-5); LYMPHOCYTE ABS# 1.25 10x3/uL (1.32-3.57); MCH 30.9 pg (26.0-34.0); MCHC 33.8 g/dL (31.0-37.0); MONOCYTES 12.5 % (2-11); NEUTROPHIL ABS# 3.07 10x3/uL (1.78-5.38); NEUTROPHILS 59.1 % (40-80); PLATELET COUNT 163 10x3/uL (130-400); RBC 3.37 10x6/uL (4.20-6.10); RDW 14.7 % (11.5-14.5); WBC 5.2 10x3/uL (4.8-10.8)
[2020-12-13 06:53] LABS: CALCIUM 9.3 mg/dL (8.5-10.1); CARBON DIOXIDE 27.4 mmol/L (21.0-32.0); CHLORIDE - SERUM 105 mmol/L (98-107); GLUCOSE 88 mg/dL (74-106); MAGNESIUM - SERUM 1.1 mg/dL (1.8-2.4); MCV 91.4 fL (80.0-100.0); POTASSIUM - SERUM 3.3 mmol/L (3.5-5.1); SODIUM 137 mmol/L (136-145)
[2020-12-13 06:54] LABS: CALC OSMOLALITY 271 mosm/kg (275-300); CREATININE - SERUM 0.8 mg/dL (0.6-1.3); PHOSPHOROUS 2.5 mg/dL (2.5-4.9); UREA NITROGEN 11 mg/dL (7-18); eGFR NON AFRICAN AMERICAN > 90 mL/min (90-120)
--- NOTE | 2020-12-13 07:30 | NUR ---
RECIEVED BEDSIDE REPORT. PATIENT IN BED, AROUSES TO VOICE. DENIES NEEDS AT THIS TIME. BED LOW POSITION, CALL LIGHT IN REACH. FREE FROM SIGNS OF DISTRESS. WILL CONTINUE TO MONITOR.
[2020-12-13 09:04] VITALS: BP 142/69
[2020-12-13 12:21] VITALS: BP 151/63
[2020-12-13 12:40] VITALS: Ht 188 cm; Wt 62.2 kg
--- NOTE | 2020-12-13 13:38 | NUR ---
IN BED. DENIES NEEDS AT THIS TIME. BED LOW POSITION. CALL LIGHT IN REACH. WILL CONTINUE TO MONITOR.
--- NOTE | 2020-12-13 16:09 | NUR ---
PATIENT WALKED INTO BATHROOM AND AROUND IN ROOM WITH MIN ASST WITH WALKER FOR 15 FEET.
[2020-12-13 16:13] VITALS: BP 102/65
--- NOTE | 2020-12-13 16:57 | NUR ---
OT NOTE: PT COMPLETED SUPINE TO SIT WITH SBA. PT COMPLETED SIT TO STAND WITH CGA. PT COMPLETED BUE AROM EXS AT EOB WITH SBA. [phone] THANK YOU,NAVJOT ENRIQUE
[2020-12-13 19:51] VITALS: BP 125/64
[2020-12-14] VITALS (10 sets, daily range): BP systolic 122–139; BP diastolic 62–72
[2020-12-14 05:16] LABS: BASOPHILS 0.2 % (0-2); EOSINOPHILS 2.8 % (0-7); HEMATOCRIT 29.7 % (42.0-54.0); IMMATURE GRANULOCYTES 0.2 % (0-5); LYMPHOCYTE ABS# 1.23 10x3/uL (1.32-3.57); LYMPHOCYTES 24.6 % (15-50); MCH 31.3 pg (26.0-34.0); MCHC 33.7 g/dL (31.0-37.0); MCV 93.1 fL (80.0-100.0); MEAN PLATELET VOLUME 10.4 fL (7.4-10.4); NEUTROPHIL ABS# 3.07 10x3/uL (1.78-5.38); NEUTROPHILS 61.2 % (40-80); PLATELET COUNT 172 10x3/uL (130-400); RBC 3.19 10x6/uL (4.20-6.10); RDW 14.9 % (11.5-14.5)
[2020-12-14 05:20] LABS: CALC OSMOLALITY 277 mosm/kg (275-300); CALCIUM 8.6 mg/dL (8.5-10.1); CARBON DIOXIDE 25.8 mmol/L (21.0-32.0); CHLORIDE - SERUM 107 mmol/L (98-107); CREATININE - SERUM 0.9 mg/dL (0.6-1.3); GLUCOSE 91 mg/dL (74-106); MAGNESIUM - SERUM 1.5 mg/dL (1.8-2.4); PHOSPHOROUS 2.7 mg/dL (2.5-4.9); POTASSIUM - SERUM 3.9 mmol/L (3.5-5.1); SODIUM 140 mmol/L (136-145); UREA NITROGEN 10 mg/dL (7-18); eGFR NON AFRICAN AMERICAN 85 mL/min (90-120)
--- NOTE | 2020-12-14 05:49 | NUR ---
Pt has rested well in bed this noc. Did have daughter in at HS. Remains alert and oriented to self and placeintermittently. Denies pain/discomfort. K+ given per protocol during Noc and lab draw this AM done 4 hours after. K+ now WNL. MG however, was 1.5 and protocol was followed for same. Pt remains asymptomatic of electrolyte imbalances. Did utilize call light once last night to request urinal, otherwise, pt has been incontinent.
--- NOTE | 2020-12-14 07:26 | NUR ---
RECIEVED BEDSIDE REPORT. PATIENT IN BED. DENIES NEEDS AT THIS TIME. BED LOW POSITION, CALL LIGHT IN REACH. EARLENE ALARM ON. WILL CONTINUE TO MONITOR.
--- NOTE | 2020-12-14 11:38 | NUR ---
PATIENT WALKED 40 FEET WITH MIN ASST WITH A WALKER.
--- NOTE | 2020-12-14 12:50 | NUR ---
PATIENT LEFT UNIT VIA BED TO PROCEDURE AT THIS TIME.
[2020-12-14 14:25] LABS: CALC OSMOLALITY 282 mosm/kg (275-300); CALCIUM 8.6 mg/dL (8.5-10.1); CARBON DIOXIDE 24.2 mmol/L (21.0-32.0); CHLORIDE - SERUM 108 mmol/L (98-107); CREATININE - SERUM 0.9 mg/dL (0.6-1.3); GLUCOSE 100 mg/dL (74-106); POTASSIUM - SERUM 3.9 mmol/L (3.5-5.1); SODIUM 142 mmol/L (136-145); UREA NITROGEN 12 mg/dL (7-18); eGFR NON AFRICAN AMERICAN 85 mL/min (90-120)
[2020-12-14 14:28] LABS: HEMATOCRIT 31.3 % (42.0-54.0); HEMOGLOBIN 10.5 g/dL (13.5-17.5); MCH 31.1 pg (26.0-34.0); MCHC 33.5 g/dL (31.0-37.0); MCV 92.6 fL (80.0-100.0); MEAN PLATELET VOLUME 10.5 fL (7.4-10.4); RBC 3.38 10x6/uL (4.20-6.10); WBC 4.9 10x3/uL (4.8-10.8)
--- NOTE | 2020-12-14 14:29 | NUR ---
PATIENT BACK TO UNIT VIA BED FROM PROCEDURE. POST OP VITAL SIGNS STARTED. WILL CONTINUE TO MONITOR.
--- NOTE | 2020-12-14 15:57 | NUR ---
OT NOTE: PT COMPLETED SUPINE TO SIT WITH MIN A/CGA. PT COMPLETED SIT TO STAND WITH CGA. PT COMPLETED ADL MOB WITH CGA USING RW. PT COMPLETED ORAL CARE WITH MIN A. PT COMPLETED FACE HYGIENE WITH SETUP. PT REQUIRED MOD A FOR MARYA LOCK. [phone] THANK YOU,NAVJOT ENRIQUE
[2020-12-14 16:06] LABS: APTT 36.1 SECONDS (22.8-39.4); INR 1.19 (0.85-1.17)
[2020-12-15 00:27] VITALS: BP 142/70
[2020-12-15 04:00] VITALS: BP 134/75
[2020-12-15 06:12] LABS: BASOPHILS 0.2 % (0-2); EOSINOPHILS 2.9 % (0-7); HEMATOCRIT 31.7 % (42.0-54.0); HEMOGLOBIN 10.7 g/dL (13.5-17.5); IMMATURE GRANULOCYTES 0.2 % (0-5); LYMPHOCYTE ABS# 1.14 10x3/uL (1.32-3.57); LYMPHOCYTES 20.5 % (15-50); MCH 30.7 pg (26.0-34.0); MCHC 33.8 g/dL (31.0-37.0); MCV 91.1 fL (80.0-100.0); MEAN PLATELET VOLUME 10.1 fL (7.4-10.4); MONOCYTES 10.8 % (2-11); NEUTROPHIL ABS# 3.64 10x3/uL (1.78-5.38); NEUTROPHILS 65.4 % (40-80); PLATELET COUNT 176 10x3/uL (130-400); RBC 3.48 10x6/uL (4.20-6.10); RDW 14.7 % (11.5-14.5); WBC 5.6 10x3/uL (4.8-10.8)
[2020-12-15 06:30] LABS: CALC OSMOLALITY 276 mosm/kg (275-300); CALCIUM 8.5 mg/dL (8.5-10.1); CARBON DIOXIDE 27.8 mmol/L (21.0-32.0); CHLORIDE - SERUM 106 mmol/L (98-107); CREATININE - SERUM 0.8 mg/dL (0.6-1.3); GLUCOSE 88 mg/dL (74-106); MAGNESIUM - SERUM 1.8 mg/dL (1.8-2.4); POTASSIUM - SERUM 3.6 mmol/L (3.5-5.1); SODIUM 140 mmol/L (136-145); UREA NITROGEN 9 mg/dL (7-18); eGFR NON AFRICAN AMERICAN > 90 mL/min (90-120)
[2020-12-15 08:12] VITALS: BP 140/72
--- NOTE | 2020-12-15 10:27 | NUR ---
0700 - RECEIVED PATIENT FROM OFFGOING NURSE, RESTING QUIETLY IN BED WITH NO S/SX OF DISTRESS. LEFT ARM IN SHOULDER SLING WITH DRESSING TO LEFT CHEST CDI. WILL CONTINUE TO MONITOR.
--- NOTE | 2020-12-15 12:10 | MORECARE ---
CASE MANAGEMENT DISCHARGE SUMMARY PATIENT: SILVA GONZALES UNIT: [id number] ADM DATE: 12/12/20 AGE: 85 : 34 SEX: M ROOM/BED: D.2201 AUTHOR: SERGIO PERERA PHYSICIAN: REFERRING PHYSICIAN: LIDIA AARON MD DATE OF SERVICE: 12/15/20 Discharge Plan Patient Name: SILVA GONZALES Facility: [facility]:[place] : 1935 Planned Disposition: Home with Home Health Anticipated Discharge Date: Discharge Date: Expected LOS: Initial Reviewer: [email or web address] Initial Review Date: 12/11/2020 Generated: 12/15/20 1:10 pm Patient Name: SILVA GONZALES Page [id number] at 1210 All edits/amendments must be made on the electronic document DICTATION DATE: 12/15/20 1210 CONTRACT ANALYST: HERB 12/15/20 1210 RPT#: [id number] DC DATE: STATUS: ADM IN [facility] [address] [place] [address] END OF REPORT
--- NOTE | 2020-12-15 12:23 | MORECARE ---
CASE MANAGEMENT DISCHARGE SUMMARY PATIENT: SILVA GONZALES UNIT: [id number] ADM DATE: 12/12/20 AGE: 85 : 34 SEX: M ROOM/BED: D.2201 AUTHOR: SERGIO PERERA PHYSICIAN: REFERRING PHYSICIAN: LIDIA AARON MD DATE OF SERVICE: 12/15/20 Discharge Plan Patient Name: SILVA GONZALES Facility: [facility]:[place] : 1935 Planned Disposition: Home with Home Health Anticipated Discharge Date: Discharge Date: Expected LOS: Initial Reviewer: [email or web address] Initial Review Date: 12/11/2020 Generated: 12/15/20 1:23 pm DCPIA - Discharge Planning Initial Assessment Updated by [email or web address]: Gwendolyn Lake on 12/15/20 12:19 pm * Is the patient Alert and Oriented? Yes * [facility] * Preadmission Environment Home with Family * ADLs Partial Dependent * Partial ADLs (Assistance needed) Bathing Medication Management * Equipment Rolling Walker * List name and contact numbers for known caregivers / representatives who currently or will assist patient after discharge: MARCELA [phone] * Verbal permission to speak to the caregivers and representatives has been obtained from the patient. N/A * Community resources currently utilized Home Health * Please name any agencies selected above. [facility] * Additional services required to return to the preadmission environment? Yes * Can the patient safely return to the preadmission environment? Yes * Has this patient been hospitalized within the prior 30 days at any hospital? Yes Last DP export: 12/15/20 11:10 a Patient Name: SILVA GONZALES Page 76802 at 1223 All edits/amendments must be made on the electronic document DICTATION DATE: 12/15/20 1223 AUTOMATIC STEEL TIE ADJUSTER: HERB 12/15/20 1223 RPT#: [id number] DC DATE: STATUS: ADM IN [facility] [address] [place] [address] END OF REPORT
[2020-12-15 12:24] VITALS: BP 132/73
--- NOTE | 2020-12-15 12:36 | MORECARE ---
CASE MANAGEMENT DISCHARGE SUMMARY PATIENT: SILVA GONZALES UNIT: [id number] ADM DATE: 12/12/20 AGE: 85 : 34 SEX: M ROOM/BED: D.2201 AUTHOR: TREVERDOC PHYSICIAN: REFERRING PHYSICIAN: LIDIA AARON MD DATE OF SERVICE: 12/15/20 Discharge Plan Patient Name: SILVA GONZALES Facility: [facility]:[place] : 1935 Planned Disposition: Home with Home Health Anticipated Discharge Date: Discharge Date: Expected LOS: Initial Reviewer: [email or web address] Initial Review Date: 12/11/2020 Generated: 12/15/20 1:36 pm Comments DCP- Discharge Planning Updated by [email or web address]: Gwendolyn Lake on 12/15/20 11:[address] Patient Name: SILVA GONZALES Admission Status: ER Accout number: [id number] Admission Date: 12-12-2020 : 1935 Admission Diagnosis:MECH COMPL OF OTHER CARDIAC ELECTRONIC DEVICE, INIT ENC Attending: SOULEYMANE Current LOS: 3 Anticipated DC Date: Planned Disposition: Home with Home Health Primary Insurance: [employer] CHOICE PPO [facility] Discharge Planning Comments: CM met spoke with patient's daughter to complete initial dc planning assessment. CM educated patient on the CM role and verbal consent given by patient to complete assessment. Patient lives at home with his daughters where he is partially independent with his care. At discharge patient plans to return home with his daughter and feels this is a safe discharge. Marcela will be his straddle truck driver home. CM discussed availability of home health, rehab services, and medical equipment. He is current with [facility] and will resume them at discharge. He has a walker at home that he uses. Marcela expressed concern about him walking with PT and to make sure he was fixed this time. I have re-consulted PT now that he has had the lead provision to make sure he is safe to DC home. Marcela will need to be notified when PT has been evaluated him. Her number is [phone]. CM will continue to follow and will assist as needed with dc plans/needs Sampler Radioactive Waste: Gwendolyn Lake DCPIA - Discharge Planning Initial Assessment Updated by [email or web address]: Gwendolyn Lake on 12/15/20 12:19 pm * Is the patient Alert and Oriented? Yes * [facility] * Preadmission Environment Home with Family * ADLs Partial Dependent * Partial ADLs (Assistance needed) Bathing Medication Management * Equipment Rolling Walker * List name and contact numbers for known caregivers / representatives who currently or will assist patient after discharge: MARCELA [phone] * Verbal permission to speak to the caregivers and representatives has been obtained from the patient. N/A * Community resources currently utilized Home Health * Please name any agencies selected above. [facility] * Additional services required to return to the preadmission environment? Yes * Can the patient safely return to the preadmission environment? Yes * Has this patient been hospitalized within the prior 30 days at any hospital? Yes Last DP export: 12/15/20 11:23 a Patient Name: SILVA GONZALES Page [phone] at 1236 All edits/amendments must be made on the electronic document DICTATION DATE: 12/15/20 1236 PERSONNEL SECURITY ASSISTANT: HERB 12/15/20 1236 RPT#: [id number] DC DATE: STATUS: ADM IN [facility] [address] [place] [address] END OF REPORT
--- NOTE | 2020-12-15 16:12 | NUR ---
OT NOTE: PT COMPLETED ORAL HYGIENE WITH SETUP. PT COMPLETED FACE HYGIENE WITH SETUP. PT REQUIRED MAX A FOR HAND/NAIL HYGIENE. [phone] HORTENSIA LOCO COTA
--- NOTE | 2020-12-15 16:13 | NUR ---
PATIENT LEFT ARM IN SLING, SAT PATIENT AT SIDE OF BED WITH MIN ASST. WILL WALK IN CARMICHAEL TOMORROW.
[2020-12-15 17:04] VITALS: BP 147/81
[2020-12-15 20:18] VITALS: BP 144/74
--- NOTE | 2020-12-15 22:50 | NUR ---
pt resting in bed, watching tv. pt was in no pain nor distress at the time. call light in reach with bed in lowest position.
[2020-12-16 00:29] VITALS: BP 138/70
[2020-12-16 04:00] VITALS: BP 140/76
[2020-12-16 06:55] LABS: BASOPHILS 0.4 % (0-2); EOSINOPHILS 3.8 % (0-7); HEMATOCRIT 32.8 % (42.0-54.0); HEMOGLOBIN 10.9 g/dL (13.5-17.5); LYMPHOCYTE ABS# 1.33 10x3/uL (1.32-3.57); LYMPHOCYTES 27.8 % (15-50); MCH 30.3 pg (26.0-34.0); MCHC 33.2 g/dL (31.0-37.0); MCV 91.1 fL (80.0-100.0); MEAN PLATELET VOLUME 10.2 fL (7.4-10.4); NEUTROPHIL ABS# 2.58 10x3/uL (1.78-5.38); PLATELET COUNT 169 10x3/uL (130-400); RDW 14.7 % (11.5-14.5); WBC 4.8 10x3/uL (4.8-10.8)
[2020-12-16 07:20] LABS: CALC OSMOLALITY 275 mosm/kg (275-300); CALCIUM 8.5 mg/dL (8.5-10.1); CARBON DIOXIDE 27.7 mmol/L (21.0-32.0); CHLORIDE - SERUM 106 mmol/L (98-107); CREATININE - SERUM 0.8 mg/dL (0.6-1.3); GLUCOSE 81 mg/dL (74-106); MAGNESIUM - SERUM 1.6 mg/dL (1.8-2.4); POTASSIUM - SERUM 3.8 mmol/L (3.5-5.1); SODIUM 139 mmol/L (136-145); UREA NITROGEN 10 mg/dL (7-18); eGFR NON AFRICAN AMERICAN > 90 mL/min (90-120)
[2020-12-16 08:31] VITALS: BP 141/76
--- NOTE | 2020-12-16 12:49 | NUR ---
Nutrition follow-up: Diet order: consistent CHO PO inake ~75% average of meals Labs reviewed; glucose under good control Wt: 137# +BM PO intake is good at this time Will continue to provide food choices and honor food preferences; offer Gluccatherine Tapia Follow-up: 12/20/20
[2020-12-16 12:52] VITALS: BP 134/69
--- NOTE | 2020-12-16 14:51 | NUR ---
OT NOTE: PT COMPLETED BED MOB MIN A. PT REQUIRED TOTAL A FOR POSITIONING OF SLING ON LUE. PT REQUIRED MAX A FOR LB HYGIENE. [phone] THANK YOU,NAVJOT ENRIQUE
[2020-12-16 16:58] VITALS: BP 137/87
[2020-12-16 19:30] VITALS: BP 144/72
--- NOTE | 2020-12-16 20:00 | NUR ---
ALERT RESTING IN BED DENIES PAIN OR NEEDS AT THIS TIME, SLING IN PLACE TO LEFT ARM DRESSING C/D/I TO LEFT UPPER CHEST, SEE SHIFT ASSESSMENT, CALL LIGHT IN REACH
[2020-12-17] VITALS: BP 159/77
[2020-12-17 02:34] LABS: BILIRUBIN NEGATIVE (NEGATIVE); KETONE NEGATIVE (NEGATIVE); NITRITE NEGATIVE (NEGATIVE); UROBILINOGEN NORMAL mg/dL (< 2)
[2020-12-17 04:00] VITALS: BP 126/73; BP 134/74
[2020-12-17 05:50] LABS: BASOPHILS 0.2 % (0-2); EOSINOPHILS 3.4 % (0-7); HEMATOCRIT 34.5 % (42.0-54.0); HEMOGLOBIN 11.9 g/dL (13.5-17.5); LYMPHOCYTE ABS# 1.07 10x3/uL (1.32-3.57); LYMPHOCYTES 21.1 % (15-50); MCH 31.2 pg (26.0-34.0); MCHC 34.5 g/dL (31.0-37.0); MCV 90.6 fL (80.0-100.0); MEAN PLATELET VOLUME 10.4 fL (7.4-10.4); MONOCYTES 11.5 % (2-11); NEUTROPHIL ABS# 3.23 10x3/uL (1.78-5.38); NEUTROPHILS 63.8 % (40-80); PLATELET COUNT 200 10x3/uL (130-400); RBC 3.81 10x6/uL (4.20-6.10); RDW 14.8 % (11.5-14.5); WBC 5.1 10x3/uL (4.8-10.8)
[2020-12-17 06:21] LABS: CALC OSMOLALITY 276 mosm/kg (275-300); CALCIUM 9.1 mg/dL (8.5-10.1); CARBON DIOXIDE 27.3 mmol/L (21.0-32.0); CHLORIDE - SERUM 106 mmol/L (98-107); CREATININE - SERUM 0.9 mg/dL (0.6-1.3); GLUCOSE 89 mg/dL (74-106); MAGNESIUM - SERUM 1.6 mg/dL (1.8-2.4); PHOSPHOROUS 3.5 mg/dL (2.5-4.9); POTASSIUM - SERUM 3.5 mmol/L (3.5-5.1); SODIUM 140 mmol/L (136-145); UREA NITROGEN 11 mg/dL (7-18); eGFR NON AFRICAN AMERICAN 85 mL/min (90-120)
--- NOTE | 2020-12-17 08:23 | MORECARE ---
CASE MANAGEMENT DISCHARGE SUMMARY PATIENT: SILVA GONZALES UNIT: [id number] ADM DATE: 12/12/20 AGE: 85 : 34 SEX: M ROOM/BED: D.2201 AUTHOR: TREVERDOC PHYSICIAN: REFERRING PHYSICIAN: LIDIA AARON MD DATE OF SERVICE: 12/17/20 Discharge Plan Patient Name: SILVA GONZALES Facility: [facility]:[place] : 1935 Planned Disposition: Home with Home Health Anticipated Discharge Date: Discharge Date: Expected LOS: Initial Reviewer: [email or web address] Initial Review Date: 12/11/2020 Generated: 12/17/20 9:22 am Comments DCP- Discharge Planning Updated by [email or web address]: Gwendolyn Lake on 12/15/20 11:[address] Patient Name: SILVA GONZALES Admission Status: ER Accout number: [id number] Admission Date: 12-12-2020 : 1935 Admission Diagnosis:MECH COMPL OF OTHER CARDIAC ELECTRONIC DEVICE, INIT ENC Attending: SOULEYMANE Current LOS: 3 Anticipated DC Date: Planned Disposition: Home with Home Health Primary Insurance: [employer] CHOICE PPO [facility] Discharge Planning Comments: CM met spoke with patient's daughter to complete initial dc planning assessment. CM educated patient on the CM role and verbal consent given by patient to complete assessment. Patient lives at home with his daughters where he is partially independent with his care. At discharge patient plans to return home with his daughter and feels this is a safe discharge. Marcela will be his ambulance driver paramedic home. CM discussed availability of home health, rehab services, and medical equipment. He is current with [facility] and will resume them at discharge. He has a walker at home that he uses. Marcela expressed concern about him walking with PT and to make sure he was fixed this time. I have re-consulted PT now that he has had the lead provision to make sure he is safe to DC home. Marcela will need to be notified when PT has been evaluated him. Her number is [phone]. CM will continue to follow and will assist as needed with dc plans/needs Revenue Agent: Gwendolyn Lake DCPIA - Discharge Planning Initial Assessment Updated by [email or web address]: Gwendolyn Lake on 12/15/20 12:19 pm * Is the patient Alert and Oriented? Yes * [facility] * Preadmission Environment Home with Family * ADLs Partial Dependent * Partial ADLs (Assistance needed) Bathing Medication Management * Equipment Rolling Walker * List name and contact numbers for known caregivers / representatives who currently or will assist patient after discharge: MARCELA [phone] * Verbal permission to speak to the caregivers and representatives has been obtained from the patient. N/A * Community resources currently utilized Home Health * Please name any agencies selected above. [facility] * Additional services required to return to the preadmission environment? Yes * Can the patient safely return to the preadmission environment? Yes * Has this patient been hospitalized within the prior 30 days at any hospital? Yes External Providers [facility] Contact Date: Service Request Date: Service Type: Resolution: Reviewer: Comments: Last DP export: 12/15/20 11:36 a Patient Name: SILVA GONZALES Page [phone] at 0823 All edits/amendments must be made on the electronic document DICTATION DATE: 12/17/20822 VOIP TECHNICIAN: HERB 12/17/20822 RPT#: [id number] DC DATE: STATUS: ADM IN [facility] [address] [place] [address] END OF REPORT
--- NOTE | 2020-12-17 08:30 | NUR ---
ASSESSMENT PER FLOW SHEET. PATIENT IS WITHOUT DISTRESS.FALL PREVENTION WITH EARLENE MAT. SCD,S.IS INSTRUCTED. DOOR OPEN TO MONITOR. TRAY SET UP FOR BREAKFAST.
[2020-12-17 08:45] VITALS: BP 137/71
--- NOTE | 2020-12-17 09:41 | OP ---
PATIENT NAME: SILVA GONZALES MEDICAL RECORD: [id number] :[birth year] LOCATION:D.MS [address] ADMISSION DATE:12/12/20 SURGEON: ZAINA TATE MD DATE OF OPERATION: 12/14/2020 This is a lead repositioning. DESCRIPTION OF PROCEDURE: After the pocket was opened via Dr. Hickman under fluoroscopic guidance, we placed the RV lead, which had migrated down back in the RV apex. After adequate thresholds and R waves were obtained again under fluoroscopic guidance reposition the right atrial lead and right atrial appendage without difficulty. After a P-wave threshold was obtained, the pocket was closed via Dr. Hickman. IMPRESSION: Successful lead repositioning. ESTIMATED BLOOD LOSS: Minimal. COMPLICATIONS: None. DISPOSITION: To the floor stable. TRANSINT:[id number] Voice Confirmation ID: [id number] DOCUMENT ID: [id number] ZAINA TATE MD at 0941 CC: [id number] DICTATION DATE: 12/14/20 1341 STUDENT SERVICES COUNSELOR: 12/14/20 1815 ADM IN [facility] [address] [place] [address]
[2020-12-17 12:18] VITALS: BP 116/64
--- NOTE | 2020-12-17 15:29 | NUR ---
OT NOTE: PT REQUIRED TOTAL A FOR SLING POSITIONING. PT COMPLETED SUPINE TO SIT WITH MIN A. PT COMPLETED SIT TO STAND WITH CGA. PT COMPLETED ORAL CARE WITH SETUP. PT COMPLETED SELF FEEDING WITH SETUP. [phone] THANK YOU,NAVJOT ENRIQUE
[2020-12-17 16:07] VITALS: BP 114/62
--- NOTE | 2020-12-17 16:47 | NUR ---
REMAINS WITHOUT DISTRESS. EATING DINNER. DENIES NEEDS.DOOR OPEN TO MONITOR. CONT PLAN OF CARE
--- NOTE | 2020-12-17 20:00 | NUR ---
REPORT RECEIVED, WILL CONT POC. PT A&O, UP IN BED WATCHING TV. DRESSING DRY AND INTACT TO PACER SITE. NO S/S OF DISTRESS OBSERVED. RR EVEN AND UNLABORED ON RA. BED LOCKED AND LOWERED, CL IN REACH. ASSESSMENT COMPLETED AT THIS TIME. WILL CONT TO MONITOR.
[2020-12-17 21:00] VITALS: BP 114/59
[2020-12-18 01:56] VITALS: BP 114/59
[2020-12-18 04:55] VITALS: BP 114/52
--- NOTE | 2020-12-18 04:58 | NUR ---
FULL LINEN AND GOWN CHANGE BY ELTON BARAHONA. NO OTHER NEEDS. ENCOURAGED PT TO USE INCENTIVE SPIROMETER. WILL CONTINUE TO MONITOR.
[2020-12-18 05:17] LABS: BASOPHILS 0.4 % (0-2); EOSINOPHILS 2.4 % (0-7); HEMATOCRIT 30.6 % (42.0-54.0); HEMOGLOBIN 10.2 g/dL (13.5-17.5); LYMPHOCYTE ABS# 1.51 10x3/uL (1.32-3.57); LYMPHOCYTES 27.8 % (15-50); MCH 30.5 pg (26.0-34.0); MCHC 33.3 g/dL (31.0-37.0); MCV 91.6 fL (80.0-100.0); MEAN PLATELET VOLUME 10.2 fL (7.4-10.4); MONOCYTES 13.4 % (2-11); NEUTROPHIL ABS# 3.05 10x3/uL (1.78-5.38); PLATELET COUNT 198 10x3/uL (130-400); RBC 3.34 10x6/uL (4.20-6.10); WBC 5.4 10x3/uL (4.8-10.8)
[2020-12-18 05:23] LABS: CALC OSMOLALITY 278 mosm/kg (275-300); CALCIUM 8.3 mg/dL (8.5-10.1); CARBON DIOXIDE 27.5 mmol/L (21.0-32.0); CHLORIDE - SERUM 108 mmol/L (98-107); CREATININE - SERUM 0.8 mg/dL (0.6-1.3); GLUCOSE 90 mg/dL (74-106); POTASSIUM - SERUM 3.9 mmol/L (3.5-5.1); SODIUM 140 mmol/L (136-145); UREA NITROGEN 13 mg/dL (7-18); eGFR NON AFRICAN AMERICAN > 90 mL/min (90-120)
--- NOTE | 2020-12-18 07:45 | NUR ---
RESTIG IN BED, NO DISTRESS NOTED, IV INFUSING, CONT TO MONITOR SUGARS
[2020-12-18 07:47] VITALS: BP 133/67
[2020-12-18 11:53] VITALS: BP 114/71
--- NOTE | 2020-12-18 15:30 | NUR ---
SPOKE WITH DAUGHTER MARCELA ABOUT PT D/C, VOICED NO CONCERNS, REMOVED IV ,TIP IHNTACT, SLING TO L ARM, DRESSING DRY TO L CHEST, [facility] CALLED FOR TRANSFER
--- NOTE | 2020-12-18 16:48 | NUR ---
AMBULANCE HERE TO TAKE PT HOME
--- NOTE | 2020-12-18 16:58 | MORECARE ---
CASE MANAGEMENT DISCHARGE SUMMARY PATIENT: SILVA GONZALES UNIT: [id number] ADM DATE: 12/12/20 AGE: 85 : 34 SEX: M ROOM/BED: D.2201 AUTHOR: TREVERDOC PHYSICIAN: REFERRING PHYSICIAN: LIDIA AARON MD DATE OF SERVICE: 12/18/20 Discharge Plan Patient Name: SILVA GONZALES Facility: [facility]:[place] : 1935 Planned Disposition: Home with Home Health Anticipated Discharge Date: Discharge Date: 12/18/2020 Expected LOS: Initial Reviewer: [email or web address] Initial Review Date: 12/11/2020 Generated: 12/18/20 5:57 pm Comments DCP- Discharge Planning Updated by [id number]: Gwendolyn Lake on 12/15/20 11:[address] Patient Name: SILVA GONZALES Admission Status: ER Accout number: [id number] Admission Date: 12-12-2020 : 1935 Admission Diagnosis:MECH COMPL OF OTHER CARDIAC ELECTRONIC DEVICE, INIT ENC Attending: SOULEYMANE Current LOS: 3 Anticipated DC Date: Planned Disposition: Home with Home Health Primary Insurance: [employer] CHOICE PPO [facility] Discharge Planning Comments: CM met spoke with patient's daughter to complete initial dc planning assessment. CM educated patient on the CM role and verbal consent given by patient to complete assessment. Patient lives at home with his daughters where he is partially independent with his care. At discharge patient plans to return home with his daughter and feels this is a safe discharge. Marcela will be his motor coach driver home. CM discussed availability of home health, rehab services, and medical equipment. He is current with [facility] and will resume them at discharge. He has a walker at home that he uses. Marcela expressed concern about him walking with PT and to make sure he was fixed this time. I have re-consulted PT now that he has had the lead provision to make sure he is safe to DC home. Marcela will need to be notified when PT has been evaluated him. Her number is [phone]. CM will continue to follow and will assist as needed with dc plans/needs Veterinary Manager: Gwendolyn Lake DCPIA - Discharge Planning Initial Assessment Updated by [email or web address]: Gwendolyn Lake on 12/15/20 12:19 pm * Is the patient Alert and Oriented? Yes * [facility] * Preadmission Environment Home with Family * ADLs Partial Dependent * Partial ADLs (Assistance needed) Bathing Medication Management * Equipment Rolling Walker * List name and contact numbers for known caregivers / representatives who currently or will assist patient after discharge: MARCELA [phone] * Verbal permission to speak to the caregivers and representatives has been obtained from the patient. N/A * Community resources currently utilized Home Health * Please name any agencies selected above. [facility] * Additional services required to return to the preadmission environment? Yes * Can the patient safely return to the preadmission environment? Yes * Has this patient been hospitalized within the prior 30 days at any hospital? Yes External Providers [facility] Contact Date: Service Request Date: Service Type: Resolution: Reviewer: Comments: Last DP export: 12/17/20 7:23 a Patient Name: SILVA GONZALES Page 84285 at 1658 All edits/amendments must be made on the electronic document DICTATION DATE: 12/18/201657 SENIOR PRODUCT INTEGRITY ENGINEER: HERB 12/18/201657 RPT#: [id number] DC DATE:12/18/20 STATUS: DIS IN [facility] [address] [place] [address] END OF REPORT
--- NOTE | 2020-12-18 17:14 | MORECARE ---
CASE MANAGEMENT DISCHARGE SUMMARY PATIENT: SILVA GONZALES UNIT: [id number] ADM DATE: 12/12/20 AGE: 85 : 34 SEX: M ROOM/BED: D.2201 AUTHOR: SERGIO PERERA PHYSICIAN: REFERRING PHYSICIAN: LIDIA AARON MD DATE OF SERVICE: 12/18/20 Discharge Plan Patient Name: SILVA GONZALES Facility: [facility]:[place] : 1935 Planned Disposition: Home with Home Health Anticipated Discharge Date: Discharge Date: 12/18/2020 Expected LOS: Initial Reviewer: [email or web address] Initial Review Date: 12/11/2020 Generated: 12/18/20 6:13 pm Comments DCP- Discharge Planning Updated by [email or web address]: Ed Dunlap on 12/18/20 4:[address] CM met with patient to complete DC plan and to evaluate needs. Patient indicated CM should speak with his daughter regarding his care. CM spoke with Marcela Marques ([phone]) daughter of patient via telephone. Marcela stated that she and her father live together and her father is dependent on her for his ADL's. Marcela stated that her father has a walker and shower chair. CM discussed availability of home health, rehab services, and medical equipment. Marcela declined SNF and IPR. CM discussed the possible need for specialty walker since her father's arm is in a sling. Marcela declined DME. Marcela stated that her father is current with [facility]. ROBERTO signed for the resumption of [facility] and placed in chart. Spoke with Sujata of [facility], notified of DC. Clinicals faxed to [facility]. Marcela stated that she will be home and will await her father arrival with EMS. Patient and Marcela voiced no other needs at this time and is satisfied with DC plan. DC IMM delivered, explained, signed by the patient, and placed in chart. Signed form also left with the patient. CM will continue to follow and will assist as needed with dc plans/needs. DCP- Discharge Planning Updated by [email or web address]: Gwendolyn Lake on 12/15/20 11:[address] Patient Name: SILVA GONZALES Admission Status: ER Accout number: [id number] Admission Date: 12-12-2020 : 1935 Admission Diagnosis:MECH COMPL OF OTHER CARDIAC ELECTRONIC DEVICE, INIT ENC Attending: SOULEYMANE Current LOS: 3 Anticipated DC Date: Planned Disposition: Home with Home Health Primary Insurance: [employer]NA CHOICE PPO [facility] Discharge Planning Comments: CM met spoke with patient's daughter to complete initial dc planning assessment. CM educated patient on the CM role and verbal consent given by patient to complete assessment. Patient lives at home with his daughters where he is partially independent with his care. At discharge patient plans to return home with his daughter and feels this is a safe discharge. Marcela will be his delivery truck driver home. CM discussed availability of home health, rehab services, and medical equipment. He is current with [facility] and will resume them at discharge. He has a walker at home that he uses. Marcela expressed concern about him walking with PT and to make sure he was fixed this time. I have re-consulted PT now that he has had the lead provision to make sure he is safe to DC home. Marcela will need to be notified when PT has been evaluated him. Her number is [phone]. CM will continue to follow and will assist as needed with dc plans/needs Refrigerator Crater: Gwendolyn Lake DCPIA - Discharge Planning Initial Assessment Updated by [email or web address]: Gwendolyn Lake on 12/15/20 12:19 pm * Is the patient Alert and Oriented? Yes * [facility] * Preadmission Environment Home with Family * ADLs Partial Dependent * Partial ADLs (Assistance needed) Bathing Medication Management * Equipment Rolling Walker * List name and contact numbers for known caregivers / representatives who currently or will assist patient after discharge: MARCELA [phone] * Verbal permission to speak to the caregivers and representatives has been obtained from the patient. N/A * Community resources currently utilized Home Health * Please name any agencies selected above. [facility] * Additional services required to return to the preadmission environment? Yes * Can the patient safely return to the preadmission environment? Yes * Has this patient been hospitalized within the prior 30 days at any hospital? Yes Coverage Notice Reviewer: [email or web address] Rosa Dunlap Notice Issued Date-Time: 12/18/2020 14:00 Notice Type: IM Discharge Notice Notice Delivered To: Patient Relationship to Patient: Self Spiral Tube Winder Name: Delivery Method: HAND - Hand Delivered Julia Days: Prior Verbal Notification: Recipient Understood Notice: Yes Recipient Signature: Yes Med Rec Note Co-signed by Attending: Coverage Notice Comment: DC IMM delivered, explained, signed by the patient, and placed in chart. Reviewer: [email or web address] Rosa Dunlap Notice Issued Date-Time: 12/18/2020 14:00 Notice Type: Patient Choice Letter Notice Delivered To: Patient Relationship to Patient: Self Spiral Tube Winder Name: Delivery Method: HAND - Hand Delivered Julia Days: Prior Verbal Notification: Recipient Understood Notice: Yes Recipient Signature: Yes Med Rec Note Co-signed by Attending: Coverage Notice Comment: Natasha Joe [facility] Last DP export: 12/18/20 3:58 p Patient Name: SILVA GONZALES Page 17182 at 1714 All edits/amendments must be made on the electronic document DICTATION DATE: 12/18/201712 COMPANY DRIVER: HERB 12/18/201712 RPT#: [id number] DC DATE:12/18/20 STATUS: DIS IN [facility] [address] [place] [address] END OF REPORT
--- NOTE | 2020-12-20 08:20 | MORECARE ---
CASE MANAGEMENT DISCHARGE SUMMARY PATIENT: SILVA GONZALES UNIT: [id number] ADM DATE: 12/12/20 AGE: 85 : 34 SEX: M ROOM/BED: D.2201 AUTHOR: SERGIO PERERA PHYSICIAN: REFERRING PHYSICIAN: LIDIA AARON MD DATE OF SERVICE: 12/20/20 Discharge Plan Patient Name: SILVA GONZALES Facility: [facility]:[place] : 1935 Planned Disposition: Home with Home Health Anticipated Discharge Date: Discharge Date: 12/18/2020 Expected LOS: Initial Reviewer: [email or web address] Initial Review Date: 12/11/2020 Generated: 12/20/20 9:19 am Comments DCP- Discharge Planning Updated by [email or web address]: Ed Dulnap on 12/18/20 3:[address] CM met with patient to complete DC plan and to evaluate needs. Patient indicated CM should speak with his daughter regarding his care. CM spoke with Marcela Marques ([phone]) daughter of patient via telephone. Marcela stated that she and her father live together and her father is dependent on her for his ADL's. Marcela stated that her father has a walker and shower chair. CM discussed availability of home health, rehab services, and medical equipment. Marcela declined SNF and IPR. CM discussed the possible need for specialty walker since her father's arm is in a sling. Marcela declined DME. Marcela stated that her father is current with [facility]. ROBERTO signed for the resumption of [facility] and placed in chart. Spoke with Sujata of [facility], notified of DC. Clinicals faxed to [facility]. Marcela stated that she will be home and will await her father arrival with EMS. Patient and Marcela voiced no other needs at this time and is satisfied with DC plan. DC IMM delivered, explained, signed by the patient, and placed in chart. Signed form also left with the patient. CM will continue to follow and will assist as needed with dc plans/needs. DCP- Discharge Planning Updated by [email or web address]: Gwendolyn Lake on 12/15/20 10:[address] Patient Name: SILVA GONZALES Admission Status: ER Accout number: [id number] Admission Date: 12-12-2020 : 1935 Admission Diagnosis:MECH COMPL OF OTHER CARDIAC ELECTRONIC DEVICE, INIT ENC Attending: SOULEYMANE Current LOS: 3 Anticipated DC Date: Planned Disposition: Home with Home Health Primary Insurance: [employer] CHO[employer] PPO [facility] Discharge Planning Comments: CM met spoke with patient's daughter to complete initial dc planning assessment. CM educated patient on the CM role and verbal consent given by patient to complete assessment. Patient lives at home with his daughters where he is partially independent with his care. At discharge patient plans to return home with his daughter and feels this is a safe discharge. Marcela will be his city bus driver home. CM discussed availability of home health, rehab services, and medical equipment. He is current with [facility] and will resume them at discharge. He has a walker at home that he uses. Marcela expressed concern about him walking with PT and to make sure he was fixed this time. I have re-consulted PT now that he has had the lead provision to make sure he is safe to DC home. Marcela will need to be notified when PT has been evaluated him. Her number is [phone]. CM will continue to follow and will assist as needed with dc plans/needs Telesales Advisor: Gwendolyn Lake DCPIA - Discharge Planning Initial Assessment Updated by [email or web address]: Gwendolyn Lake on 12/15/20 12:19 pm * Is the patient Alert and Oriented? Yes * Pharmacy [facility] * Preadmission Environment Home with Family * ADLs Partial Dependent * Partial ADLs (Assistance needed) Bathing Medication Management * Equipment Rolling Walker * List name and contact numbers for known caregivers / representatives who currently or will assist patient after discharge: MARCELA [phone] * Verbal permission to speak to the caregivers and representatives has been obtained from the patient. N/A * Community resources currently utilized Home Health * Please name any agencies selected above. [employer] [facility] * Additional services required to return to the preadmission environment? Yes * Can the patient safely return to the preadmission environment? Yes * Has this patient been hospitalized within the prior 30 days at any hospital? Yes Coverage Notice Reviewer: [email or web address] Rosa Dunlap Notice Issued Date-Time: 12/18/2020 14:00 Notice Type: IM Discharge Notice Notice Delivered To: Patient Relationship to Patient: Self Inspection Machine Tender Name: Delivery Method: HAND - Hand Delivered Julia Days: Prior Verbal Notification: Recipient Understood Notice: Yes Recipient Signature: Yes Med Rec Note Co-signed by Attending: Coverage Notice Comment: DC IMM delivered, explained, signed by the patient, and placed in chart. Reviewer: [id number] Rosa Dunlap Notice Issued Date-Time: 12/18/2020 14:00 Notice Type: Patient Choice Letter Notice Delivered To: Patient Relationship to Patient: Self Inspection Machine Tender Name: Delivery Method: HAND - Hand Delivered Julia Days: Prior Verbal Notification: Recipient Understood Notice: Yes Recipient Signature: Yes Med Rec Note Co-signed by Attending: Coverage Notice Comment: Natasha Joe [facility] Last DP export: 12/18/20 3:14 p Patient Name: SILVA GONZALES Page [id number] at 0820 All edits/amendments must be made on the electronic document DICTATION DATE: 12/20/20818 ARTIST AGENT: HERB 12/20/20818 RPT#: [id number] DC DATE:12/18/20 STATUS: DIS IN [facility] [address] [place] [address] END OF REPORT
== END 2020-12-18 16:49 | disposition home health service (06) | DRG 260 ==
LOC: D.ER 16:59 → D.MS 22:35 → D.EDHOLD 22:35 → OBSVTIME 22:35 → D.MS 12-12 01:07
PROVIDERS: Family Medicine; Family Medicine Adult Medicine; Internal Medicine Interventional Cardiology; ADMIT Family Medicine; ATTEND Family Medicine
PROC: 02WA3MZ Revision of Cardiac Lead in Heart, Percutaneous Approach (ICD-10-PCS; principal; 2020-12-14 12:40)
DX: T82.198A Other mechanical complication of other cardiac electronic device, initial encounter (principal); E43 Unspecified severe protein-calorie malnutrition; Z68.1 Body mass index [BMI] 19.9 or less, adult; Y84.9 Medical procedure, unspecified as the cause of abnormal reaction of the patient, or of later complication, without mention of misadventure at the time of the procedure; R55 Syncope and collapse; N40.0 Benign prostatic hyperplasia without lower urinary tract symptoms; G30.9 Alzheimer's disease, unspecified; F02.80 Dementia in other diseases classified elsewhere, unspecified severity, without behavioral disturbance, psychotic disturbance, mood disturbance, and anxiety; I10 Essential (primary) hypertension; E11.9 Type 2 diabetes mellitus without complications; D64.9 Anemia, unspecified; K21.9 Gastro-esophageal reflux disease without esophagitis; Z86.73 Personal history of transient ischemic attack (TIA), and cerebral infarction without residual deficits; I49.5 Sick sinus syndrome

== ENCOUNTER 2021-01-07 18:45 | Inpatient (IN) | payer MEDICARE ==
[~2021-01-07] VITALS: Ht 188 cm; Wt 62.1 kg
[2021-01-07 20:00] VITALS: BP 128/68
[2021-01-07 20:32] LABS: BASOPHILS 0.2 % (0-2); EOSINOPHILS 0.9 % (0-7); HEMATOCRIT 34.9 % (42.0-54.0); HEMOGLOBIN 11.2 g/dL (13.5-17.5); IMMATURE GRANULOCYTES 0.1 % (0-5); LYMPHOCYTE ABS# 0.73 10x3/uL (1.32-3.57); LYMPHOCYTES 8.6 % (15-50); MCH 30.9 pg (26.0-34.0); MCHC 32.1 g/dL (31.0-37.0); MCV 96.4 fL (80.0-100.0); MEAN PLATELET VOLUME 10.6 fL (7.4-10.4); MONOCYTES 11.5 % (2-11); NEUTROPHILS 78.7 % (40-80); RBC 3.62 10x6/uL (4.20-6.10); WBC 8.5 10x3/uL (4.8-10.8)
[2021-01-07 20:43] LABS: PLATELET COUNT 136 10x3/uL (130-400)
[2021-01-07 20:49] LABS: CALCIUM 10.1 mg/dL (8.5-10.1); CREATININE - SERUM 1.2 mg/dL (0.6-1.3)
[2021-01-07 20:54] LABS: ALBUMIN 3.2 g/dL (3.4-5.0); BILIRUBIN - TOTAL 0.25 mg/dL (0.2-1.3); MAGNESIUM - SERUM 1.2 mg/dL (1.8-2.4); PROTEIN - SERUM 6.2 g/dL (6.4-8.2)
[2021-01-07 21:00] VITALS: BP 168/84
[2021-01-07 22:00] VITALS: BP 135/72
[2021-01-07 23:00] VITALS: BP 135/70
[2021-01-07 23:06] LABS: BILIRUBIN NEGATIVE (NEGATIVE); KETONE NEGATIVE (NEGATIVE); NITRITE NEGATIVE (NEGATIVE); UROBILINOGEN NORMAL mg/dL (< 2)
[2021-01-08 00:06] VITALS: BP 158/80
[2021-01-08 00:11] VITALS: BMI 17.6
[2021-01-08 04:45] VITALS: BP 152/68
[2021-01-08 05:13] LABS: BASOPHILS 0.4 % (0-2); HEMOGLOBIN 10.7 g/dL (13.5-17.5); IMMATURE GRANULOCYTES 0.2 % (0-5); LYMPHOCYTE ABS# 0.98 10x3/uL (1.32-3.57); LYMPHOCYTES 17.5 % (15-50); MCH 30.7 pg (26.0-34.0); MCHC 32.4 g/dL (31.0-37.0); MCV 94.6 fL (80.0-100.0); MONOCYTES 12.7 % (2-11); NEUTROPHIL ABS# 3.78 10x3/uL (1.78-5.38); NEUTROPHILS 67.2 % (40-80); PLATELET COUNT 156 10x3/uL (130-400); RBC 3.49 10x6/uL (4.20-6.10); RDW 14.8 % (11.5-14.5)
[2021-01-08 05:16] LABS: WBC 5.6 10x3/uL (4.8-10.8)
[2021-01-08 05:33] LABS: ALBUMIN 2.9 g/dL (3.4-5.0); ALKALINE PHOSPHATASE 44 U/L (30-120); ALT (SGPT) 15 U/L (10-68); BILIRUBIN - TOTAL 0.27 mg/dL (0.2-1.3); CALC OSMOLALITY 284 mosm/kg (275-300); CALCIUM 9.2 mg/dL (8.5-10.1); CHLORIDE - SERUM 107 mmol/L (98-107); CREATININE - SERUM 0.9 mg/dL (0.6-1.3); GLUCOSE 91 mg/dL (74-106); MAGNESIUM - SERUM 1.1 mg/dL (1.8-2.4); PHOSPHOROUS 3.3 mg/dL (2.5-4.9); POTASSIUM - SERUM 3.7 mmol/L (3.5-5.1); PROTEIN - SERUM 5.8 g/dL (6.4-8.2); SODIUM 142 mmol/L (136-145); THYROID STIMULATING HORMONE 1.84 uIU/mL (0.36-3.74); UREA NITROGEN 17 mg/dL (7-18); eGFR NON AFRICAN AMERICAN 85 mL/min (90-120)
[2021-01-08 08:46] VITALS: BP 148/70
--- NOTE | 2021-01-08 10:15 | NUR ---
RESTING IN BED, NO DISTESS NOTED, TAKES PO MEDS WHOLE, MG LEVEL LOW, WILL SUPPLEMENT, MONITOR SUGARS, SL TO RAC
[2021-01-08 12:23] VITALS: Ht 188 cm; Wt 62.1 kg
[2021-01-08 12:30] VITALS: BP 131/65
[2021-01-08 18:07] VITALS: BP 105/58
[2021-01-08 20:54] VITALS: BP 166/64
[2021-01-09 01:09] VITALS: BP 150/77
--- NOTE | 2021-01-09 03:00 | NUR ---
I have reviewed this patient and I concur with the Shift Assessment completed by the Licensed Practical Nurse today this shift.
[2021-01-09 05:39] VITALS: BP 131/66
[2021-01-09 06:05] LABS: BASOPHILS 0.4 % (0-2); EOSINOPHILS 2.6 % (0-7); HEMATOCRIT 32.1 % (42.0-54.0); HEMOGLOBIN 10.4 g/dL (13.5-17.5); IMMATURE GRANULOCYTES 0.2 % (0-5); LYMPHOCYTE ABS# 1.31 10x3/uL (1.32-3.57); LYMPHOCYTES 26.6 % (15-50); MCH 30.4 pg (26.0-34.0); MCHC 32.4 g/dL (31.0-37.0); MCV 93.9 fL (80.0-100.0); MEAN PLATELET VOLUME 9.7 fL (7.4-10.4); MONOCYTES 13.8 % (2-11); NEUTROPHIL ABS# 2.77 10x3/uL (1.78-5.38); NEUTROPHILS 56.4 % (40-80); PLATELET COUNT 145 10x3/uL (130-400); RBC 3.42 10x6/uL (4.20-6.10); RDW 14.5 % (11.5-14.5); WBC 4.9 10x3/uL (4.8-10.8)
[2021-01-09 06:23] LABS: ANION GAP 9.7 mmol/L (8-16); CALCIUM 8.7 mg/dL (8.5-10.1); CARBON DIOXIDE 27.8 mmol/L (21.0-32.0); MAGNESIUM - SERUM 1.4 mg/dL (1.8-2.4); PHOSPHOROUS 3.6 mg/dL (2.5-4.9); POTASSIUM - SERUM 3.5 mmol/L (3.5-5.1)
[2021-01-09 06:24] LABS: CREATININE - SERUM 1.2 mg/dL (0.6-1.3)
--- NOTE | 2021-01-09 08:30 | NUR ---
RESTING IN BED, NO DISTRESS NOTED, ALERT, TALKATIVE THIS AM, SL IN PLACE, CONT TO MONITOR SUGARS
[2021-01-09 09:11] VITALS: BP 152/72
[2021-01-09 13:08] VITALS: BP 100/64
[2021-01-09 17:16] VITALS: BP 130/58
--- NOTE | 2021-01-09 19:00 | NUR ---
BEDSIDE REPORT RECEIVED AND CARE OF PT ASSUMED. PT LYING IN LOW JEREZ'S POSITION WITH EYES CLOSED. BED ALARM IN USE FOR SAFETY. IV TO RIGHT AC SALINE LOCKED. WILL MONITOR FOR NEEDS.
[2021-01-09 19:59] VITALS: BP 146/65
--- NOTE | 2021-01-09 20:07 | NUR ---
HS MEDICATIONS GIVEN. FSBS 127 THIS CHECK REQUIRING NO COVERAGE PER SLIDING SCALE. WILL CONTINUE TO MONITOR FOR NEEDS.
[2021-01-10 05:03] LABS: BASOPHILS 0.3 % (0-2); EOSINOPHILS 2.1 % (0-7); HEMATOCRIT 31.2 % (42.0-54.0); HEMOGLOBIN 10.3 g/dL (13.5-17.5); IMMATURE GRANULOCYTES 0.3 % (0-5); LYMPHOCYTE ABS# 1.43 10x3/uL (1.32-3.57); MCH 30.7 pg (26.0-34.0); MCV 92.9 fL (80.0-100.0); MEAN PLATELET VOLUME 10.1 fL (7.4-10.4); NEUTROPHIL ABS# 3.28 10x3/uL (1.78-5.38); NEUTROPHILS 57.3 % (40-80); PLATELET COUNT 149 10x3/uL (130-400); RBC 3.36 10x6/uL (4.20-6.10); RDW 14.3 % (11.5-14.5); WBC 5.7 10x3/uL (4.8-10.8)
[2021-01-10 05:30] LABS: CALC OSMOLALITY 279 mosm/kg (275-300); CALCIUM 8.7 mg/dL (8.5-10.1); CARBON DIOXIDE 28.6 mmol/L (21.0-32.0); CHLORIDE - SERUM 106 mmol/L (98-107); GLUCOSE 95 mg/dL (74-106); MAGNESIUM - SERUM 1.7 mg/dL (1.8-2.4); PHOSPHOROUS 3.5 mg/dL (2.5-4.9); SODIUM 139 mmol/L (136-145); UREA NITROGEN 17 mg/dL (7-18)
[2021-01-10 05:40] LABS: CREATININE - SERUM 0.8 mg/dL (0.6-1.3); eGFR NON AFRICAN AMERICAN > 90 mL/min (90-120)
[2021-01-10 05:49] VITALS: BP 105/67
[2021-01-10 08:39] VITALS: BP 138/96
--- NOTE | 2021-01-10 10:43 | NUR ---
ASSESSMENT PER FLOW SHEET. PATIENT IS WITHOUT DISTRESS. UP WITH PT. SCD MACHINE TO ROOM.FALL PREVENTION IN PLACE WITH EARLENE MAT X2.MONITOR
[2021-01-10 12:03] VITALS: BP 100/60
--- NOTE | 2021-01-10 12:26 | NUR ---
Nutrition follow-up: Diet order: Consistent CHO PO intake 100% of all meals Labs reviewed; Glucose under good control Wt: 136# Pt with very good appetite at this time No BM recorded since admit; may need stool softener RDN will continue to provide food choices and honor food preferneces within diet restrictions. Will offer nutritional supplements. Follow-up: 01/13/21
--- NOTE | 2021-01-10 14:37 | NUR ---
UP IN CHAIR MOST OF DAY. HE IS SLEEPING WITHOUT SIGNS OF DISTRESS
--- NOTE | 2021-01-10 15:22 | NUR ---
WALKED 250FT WITH WALKER MIN ASSIT
--- NOTE | 2021-01-10 15:32 | NUR ---
BACK TO BED WITH ASSIST OF ELTON QUIROZ. BED ALARM ON AND WORKING. DOOR OPEN
[2021-01-10 16:43] VITALS: BP 146/64
--- NOTE | 2021-01-10 17:37 | NUR ---
STILL EATING DINNER. DOOR OPEN TO MONITOR. CONT PLAN OF CARE
[2021-01-10 20:00] VITALS: BP 110/66
[2021-01-11 04:00] VITALS: BP 140/71
[2021-01-11 05:49] LABS: BASOPHILS 0.5 % (0-2); HEMATOCRIT 34.5 % (42.0-54.0); HEMOGLOBIN 11.2 g/dL (13.5-17.5); IMMATURE GRANULOCYTES 0.3 % (0-5); LYMPHOCYTE ABS# 1.68 10x3/uL (1.32-3.57); LYMPHOCYTES 28.1 % (15-50); MCH 30.7 pg (26.0-34.0); MCHC 32.5 g/dL (31.0-37.0); MCV 94.5 fL (80.0-100.0); MONOCYTES 13.6 % (2-11); NEUTROPHIL ABS# 3.31 10x3/uL (1.78-5.38); NEUTROPHILS 55.5 % (40-80); PLATELET COUNT 147 10x3/uL (130-400); RBC 3.65 10x6/uL (4.20-6.10); RDW 14.3 % (11.5-14.5)
[2021-01-11 06:12] LABS: CALC OSMOLALITY 279 mosm/kg (275-300); CALCIUM 8.8 mg/dL (8.5-10.1); CARBON DIOXIDE 29.1 mmol/L (21.0-32.0); CHLORIDE - SERUM 106 mmol/L (98-107); GLUCOSE 89 mg/dL (74-106); MAGNESIUM - SERUM 1.8 mg/dL (1.8-2.4); PHOSPHOROUS 3.4 mg/dL (2.5-4.9); POTASSIUM - SERUM 4.3 mmol/L (3.5-5.1); SODIUM 140 mmol/L (136-145); UREA NITROGEN 17 mg/dL (7-18); eGFR NON AFRICAN AMERICAN 75 mL/min (90-120)
--- NOTE | 2021-01-11 07:47 | NUR ---
ALERT AND ORIENTED TO SELF. ASSESSMENT COMPLETE. DENIES NEEDS. BED LOW. CALL CUI AND PERSONAL ITEMS IN REACH. WILL CONTINUE TO MONITOR.
[2021-01-11 09:04] VITALS: BP 113/72
[2021-01-11 12:31] VITALS: BP 100/54
--- NOTE | 2021-01-11 13:03 | NUR ---
Nutrition reassessment: Discussed pt during IDT team meeting. Visited with pt during breakfast today; pt continues with good appetite of 100% all meals. Diet order: Consistent CHO Pt could not tell me if he has lost wt recently; however, on hospital admit on 11/01/20 pts weight was 175#; todays admission wt is 137#. Labs reviewed; glucose under good control at this time. +BM Nutrition focused physical examination reveals severe fat loss to orbital region, upper arms, ribs; severe muscle loss visualized from hands, shoulders, scapulas and clavicles. Estimated energy needs remain the same as the initial nutrition assessment on 01/08/21. 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 Pt continues with 100% intake of all meals during this hospital stay. Will continue to provide food choices and honor all food preferences. Recommendations: Please get a new wt to chart RDN will order Glucerna Shake with meals RDN follow-up: 01/14/21
--- NOTE | 2021-01-11 14:26 | NUR ---
GT BELT, PATIENT MIN ASST TO STAND FROM CHAIR AND TO WALK IN CARMICHAEL FOR 250 FEET WITH WALKER.
--- NOTE | 2021-01-11 14:48 | NUR ---
OT NOTE: PT COMPLETED BED MOB WITH SBA. PT COMPLETED SIT TO STAND WITH CGA. PT COMPLETED LB HYGIENE SECONDARY TO BM WITH MAX A. PT COMPLETED MARYA BRIEF WITH SETUP-MIN A. PT DONNED SOCKS WITH SETUP. PT COMPLETED SITTING BALANCE WITH CGA. [phone] HORTENSIA LOCO COTA
--- NOTE | 2021-01-11 15:41 | CN ---
PATIENT NAME:SILVA GONZALES MEDICAL RECORD: [id number] : 33 LOCATION:D.MS [address] ADMIT DATE: 01/08/21 ACCOUNT: [id number] CONSULTING PHYSICIAN: ONUR MICHEL MD REFERRING PHYSICIAN: NASREEN BERNARDO MD DATE OF CONSULTATION: 01/09/2021 IDENTIFYING DATA: The patient is 85 years old and he was admitted to the hospital secondary to dehydration and weakness. CHIEF COMPLAINT: Confusion. HISTORY OF PRESENT ILLNESS: The patient has a very long medical history that does include a previous diagnosis of dementia. He is cooperative, but clearly has evidence of significant decline. He is a diabetic and has hypertension. He also has a history of colon cancer, benign prostatic hypertrophy, and gastroesophageal reflux disease. He has had a pacemaker placement and he has also had a stroke. He is not providing very much in the way of useful longitudinal history and in particular, I am distressed at not knowing his social situation. He is possibly living alone that is unclear. IMPRESSION: Dementia. PLAN: I agree with the [facility]. The patient is not having any behavior outbursts and has no thoughts of harming himself or others at this time. If there is information that contradicts this, I have overlooked it and would be interested in knowing about it. The patient unfortunately does not meet Medicare criteria for an inpatient psychiatric stay because of the absence of some element of dangerousness aside from the need for supervision. The patient should not be living alone and he is certainly at risk without proper supervision, but again unfortunately the need to assess the social situation and provide supervision is an exclusionary criteria from a Medicare standpoint. He should be living in a supervised setting and probably given his level of impairment and his extremely underweight nature, I do not think he is receiving the proper care. It would appear that some sort of residential or senior living setting would be the least restrictive that could meet his needs. TRANSINT:[id number] Voice Confirmation ID: [id number] DOCUMENT ID: [id number] ONUR MICHEL MD at 1541 CC: [id number] DICTATION DATE: 01/10/21 1626 SHALE MINER BLASTING: 01/11/21 0018 ADM IN [facility] [id number] [place] [address]
[2021-01-11 15:59] VITALS: BP 119/64
[2021-01-11 20:00] VITALS: BP 123/66
[2021-01-12 04:00] VITALS: BP 93/57
--- NOTE | 2021-01-12 04:49 | NUR ---
I have reviewed this patient and I concur with the Shift Assessment completed by the Licensed Practical Nurse today this shift.
[2021-01-12 06:20] LABS: BASOPHILS 0.3 % (0-2); EOSINOPHILS 2.6 % (0-7); HEMOGLOBIN 10.5 g/dL (13.5-17.5); IMMATURE GRANULOCYTES 0.2 % (0-5); LYMPHOCYTE ABS# 1.64 10x3/uL (1.32-3.57); LYMPHOCYTES 28.4 % (15-50); MCH 30.7 pg (26.0-34.0); MCHC 32.8 g/dL (31.0-37.0); MCV 93.6 fL (80.0-100.0); MEAN PLATELET VOLUME 10.4 fL (7.4-10.4); MONOCYTES 11.4 % (2-11); NEUTROPHILS 57.1 % (40-80); PLATELET COUNT 164 10x3/uL (130-400); RBC 3.42 10x6/uL (4.20-6.10); RDW 14.4 % (11.5-14.5); WBC 5.8 10x3/uL (4.8-10.8)
[2021-01-12 06:33] LABS: CALC OSMOLALITY 277 mosm/kg (275-300); CALCIUM 8.4 mg/dL (8.5-10.1); CARBON DIOXIDE 28.9 mmol/L (21.0-32.0); CHLORIDE - SERUM 106 mmol/L (98-107); GLUCOSE 87 mg/dL (74-106); MAGNESIUM - SERUM 1.8 mg/dL (1.8-2.4); PHOSPHOROUS 3.3 mg/dL (2.5-4.9); POTASSIUM - SERUM 4.3 mmol/L (3.5-5.1); SODIUM 139 mmol/L (136-145); UREA NITROGEN 15 mg/dL (7-18); eGFR NON AFRICAN AMERICAN 75 mL/min (90-120)
--- NOTE | 2021-01-12 07:15 | NUR ---
REC'D IN BED AWAKE AND ALERT. RESP EVEN AND UNLABORED WITH NO DISTRESS NOTED. CAN EXPRESS NEEDS AND WANTS. NO C/O NOTED OR VOICED AT THIS TIME. ASSESSMENT COMPLETED. C/L IN REACH AT BEDSIDE.
--- NOTE | 2021-01-12 08:34 | MORECARE ---
CASE MANAGEMENT DISCHARGE SUMMARY PATIENT: SILVA GONZALES UNIT: [id number] ADM DATE: 01/08/21 AGE: 85 : 34 SEX: M ROOM/BED: D.2214 AUTHOR: TREVER,DOC PHYSICIAN: REFERRING PHYSICIAN: NASREEN BERNARDO MD DATE OF SERVICE: 01/12/21 Case Management Discharge Planning Summary DCP REVIEW SUMMARY ANTICIPATED D/C DATE: EXPECTED LOS : CASE STATUS: DCP Initiated INITIAL REVIEW: 01/07/2021 INITIAL REVIEWER: Gwendolyn Lake FINAL DISCHARGE DISPOSITION: : FINAL REVIEWER: FINAL REVIEW DATE: DCP Focus Questions & Answers QUESTION: ANSWER : PATIENT: SILVA GONZALES ENCOUNTER: [id number] MEDICAL RECORD#: [id number] ADMISSION DATE: 01/08/2021 DISCHARGE DATE: ATTENDING MD: HONG ESCOBAR : AGE: 85 MARITAL STATUS: D DC PLAN ID: [id number] FACILITY: [facility] PRINTED ON: 01/12/21 8:34 CT All edits/amendments must be made on the electronic document DICTATION DATE: 01/12/21833 CLERK MANAGER: DM 01/12/2134 RPT#: [id number] DC DATE: STATUS: ADM IN [facility] [address] [place] [address] END OF REPORT
[2021-01-12 08:44] VITALS: BP 139/72
--- NOTE | 2021-01-12 08:45 | MORECARE ---
CASE MANAGEMENT DISCHARGE SUMMARY PATIENT: SILVA GONZALES UNIT: [id number] ADM DATE: 01/08/21 AGE: 85 : 34 SEX: M ROOM/BED: D.2214 AUTHOR: TREVER,DOC PHYSICIAN: REFERRING PHYSICIAN: NASREEN BERNARDO MD DATE OF SERVICE: 01/12/21 Case Management Discharge Planning Summary COMMENTS ENTERED DATE: 01/12/21 8:34 CT COMMENT TYPE: Discharge Planning REVIEWER: Gwendolyn Lake LATE ENTRY 01/11/21 @1400 CM attempted to call Lexus multiple times and did not get an answer I did speak with patient's other daughter Natacah, to discuss discharge planning. Natacha states that her dad lives with her sister Lexsu where he uses a walker at home. She said that there is a family member with him 30/04. Natacha did state that her dad's PCP was Dr Castañeda He is current with [facility]. She asked me to call her sister for other details, because she would know more. I will try to get InTouch with Lexus in the morning DCP REVIEW SUMMARY ANTICIPATED D/C DATE: EXPECTED LOS : CASE STATUS: DCP Initiated INITIAL REVIEW: 01/07/2021 INITIAL REVIEWER: Gwendolyn Lake FINAL DISCHARGE DISPOSITION: : FINAL REVIEWER: FINAL REVIEW DATE: DCP Focus Questions & Answers QUESTION: ANSWER : PATIENT: SILVA GONZALES ENCOUNTER: [id number] MEDICAL RECORD#: [id number] ADMISSION DATE: 01/08/2021 DISCHARGE DATE: ATTENDING MD: HONG ESCOBAR : AGE: 85 MARITAL STATUS: D DC PLAN ID: [id number] FACILITY: [facility] PRINTED ON: 01/12/21 8:45 CT All edits/amendments must be made on the electronic document DICTATION DATE: 01/12/21844 WEB SYSTEMS DEVELOPER: HERB 01/12/21844 RPT#: [id number] DC DATE: STATUS: ADM IN [facility] [address] [place] [address] END OF REPORT
--- NOTE | 2021-01-12 13:55 | NUR ---
PATIENT MIN ASST TO GET UP TO BEDSIDE AND TO STAND. PATIENT WALKED 250 FEET WITH MIN ASST WITH WALKER.
[2021-01-12 14:00] VITALS: BP 114/57
--- NOTE | 2021-01-12 15:42 | MORECARE ---
CASE MANAGEMENT DISCHARGE SUMMARY PATIENT: SILVA GONZALES UNIT: [id number] ADM DATE: 01/08/21 AGE: 85 : 34 SEX: M ROOM/BED: D.2214 AUTHOR: TREVER,DOC PHYSICIAN: REFERRING PHYSICIAN: NASREEN BERNARDO MD DATE OF SERVICE: 01/12/21 Case Management Discharge Planning Summary COMMENTS ENTERED DATE: 01/12/21 15:37 CT COMMENT TYPE: Discharge Planning REVIEWER: Gwendolyn Lake PATIENT WILL BE DISCHARGING HOME TODAY WITH HIS DAUGHTER I SPOKE WITH MARCELA AT [facility] ABOUT HER DAD AND CARE, SHE SEEMS VERY MUCH ATTENTIVE TO HIM AND THE CARE THAT HE NEEDS. SHE STATES THAT SHE WAS TOLD BY DR CASTAÑEDA THAT HE DIDN'T NEED THE MAG AND IF HE NEEDS IT THEN SHE NEEDS TO BE TOLD HE NEEDS IT. I HAVE SPOKEN TO RAY WITH [facility] ABOUT MED BOX MANAGEMENT [facility] WILL RESUME CARE. MARCELA IS VERY APPROPRIATE WITH HER DAD AND SPEAKING WITH ME. SHE WENT OVER ALL HIS MEDICATIONS WITH ME AND ASSURED ME THAT SHE HAS EVERYTHING SHE NEEDS FOR HIM. IMM WILL BE MAILED TO [facility] SHE DENIES ANY NEEDS AT THIS TIME. SHE WILL BE THE ONE TO DRIVE HIM HOME. ENTERED DATE: 01/12/21 8:34 CT COMMENT TYPE: Discharge Planning REVIEWER: Gwendolyn Lake LATE ENTRY 01/11/21 @1400 CM attempted to call Marcela multiple times and did not get an answer I did speak with patient's other daughter Natacha, to discuss discharge planning. Natacha states that her dad lives with her sister Marcela where he uses a walker at home. She said that there is a family member with him 30/04. Natacha did state that her dad's PCP was Dr Castañeda He is current with [facility] . She asked me to call her sister for other details, because she would know more. I will try to get InTouch with Marcela in the morning DCP REVIEW SUMMARY ANTICIPATED D/C DATE: EXPECTED LOS : CASE STATUS: DCP Initiated INITIAL REVIEW: 01/07/2021 INITIAL REVIEWER: Gwendolyn Jaya FINAL DISCHARGE DISPOSITION: : FINAL REVIEWER: FINAL REVIEW DATE: DCP Focus Questions & Answers QUESTION: ANSWER : PATIENT: SILVA GONZALES ENCOUNTER: [id number] MEDICAL RECORD#: [id number] ADMISSION DATE: 01/08/2021 DISCHARGE DATE: ATTENDING MD: HONG ESCOBAR : AGE: 85 MARITAL STATUS: D DC PLAN ID: [id number] FACILITY: [facility] PRINTED ON: 01/12/21 15:42 CT All edits/amendments must be made on the electronic document DICTATION DATE: 01/12/21 154 ROUGHER OPERATOR: HERB 01/12/21 154 RPT#: [id number] DC DATE: STATUS: ADM IN [facility] [address] [place] [address] END OF REPORT
--- NOTE | 2021-01-12 16:11 | NUR ---
OT NOTE: PT REQUIRED MAX A FOR LB HYGIENE SECONDARY TO BM. PT COMPLETED MARYA BRIEF WITH SETUP-CGA. PT COMPLETED MARYA SOCKS WITH SETUP. PT COMPLETED UB HYGIENE WITH MIN A. PT COMPLETED BED MOB WITH SBA. PT COMPLETED ADL MOB WITH RW REQUIRED CGA. [phone] THANK YOU,NAVJOT ENRIQUE
--- NOTE | 2021-01-12 16:49 | NUR ---
DC HOME WITH ALL PERSONAL BELONGING. INFORMED DISTRIBUTION LINEMAN TO INFORMED FAMILY THAT NURSE WILL GIVEN MARCELA A CALL TO GO OVER DC INSTRUCTION. STABLE CONDITION UPON DEPARTURE.
--- NOTE | 2021-01-13 07:10 | MORECARE ---
CASE MANAGEMENT DISCHARGE SUMMARY PATIENT: SILVA GONZALES UNIT: [id number] ADM DATE: 01/08/21 AGE: 85 : 34 SEX: M ROOM/BED: D.2214 AUTHOR: TREVER,DOC PHYSICIAN: REFERRING PHYSICIAN: NASREEN BERNARDO MD DATE OF SERVICE: 01/13/21 Case Management Discharge Planning Summary COMMENTS ENTERED DATE: 01/12/21 15:37 CT COMMENT TYPE: Discharge Planning REVIEWER: Gwendolyn Lake PATIENT WILL BE DISCHARGING HOME TODAY WITH HIS DAUGHTER I SPOKE WITH MARCELA AT [facility] ABOUT HER DAD AND CARE, SHE SEEMS VERY MUCH ATTENTIVE TO HIM AND THE CARE THAT HE NEEDS. SHE STATES THAT SHE WAS TOLD BY DR CASTAÑEDA THAT HE DIDN'T NEED THE MAG AND IF HE NEEDS IT THEN SHE NEEDS TO BE TOLD HE NEEDS IT. I HAVE SPOKEN TO RAY WITH [facility] ABOUT MED BOX MANAGEMENT [facility] WILL RESUME CARE. MARCELA IS VERY APPROPRIATE WITH HER DAD AND SPEAKING WITH ME. SHE WENT OVER ALL HIS MEDICATIONS WITH ME AND ASSURED ME THAT SHE HAS EVERYTHING SHE NEEDS FOR HIM. IMM WILL BE MAILED TO [facility] SHE DENIES ANY NEEDS AT THIS TIME. SHE WILL BE THE ONE TO DRIVE HIM HOME. ENTERED DATE: 01/12/21 8:34 CT COMMENT TYPE: Discharge Planning REVIEWER: Gwendolyn Lake LATE ENTRY 01/11/21 @1400 CM attempted to call Marcela multiple times and did not get an answer I did speak with patient's other daughter Naatcha, to discuss discharge planning. Natacha states that her dad lives with her sister Marcela where he uses a walker at home. She said that there is a family member with him 30/04. Natacha did state that her dad's PCP was Dr Castañeda He is current with [facility] . She asked me to call her sister for other details, because she would know more. I will try to get InTouch with Marcela in the morning DCP REVIEW SUMMARY ANTICIPATED D/C DATE: EXPECTED LOS : 0 CASE STATUS: DCP Complete INITIAL REVIEW: 01/07/2021 INITIAL REVIEWER: Gwendolyn Lake FINAL DISCHARGE DISPOSITION: 06 : Discharged/Trans to Home Under Care of Organized Home Health Service in Anticipation of Skilled Care FINAL REVIEWER: Gwendolyn Lake FINAL REVIEW DATE: 01/13/2021 DCP Focus Questions & Answers QUESTION: ANSWER : PATIENT: SILVA GONZALES ENCOUNTER: [id number] MEDICAL RECORD#: [id number] ADMISSION DATE: 01/08/2021 DISCHARGE DATE: 01/12/2021 ATTENDING MD: HONG ESCOBAR : AGE: 85 MARITAL STATUS: D DC PLAN ID: [id number] FACILITY: [facility] PRINTED ON: 01/13/21 7:10 CT All edits/amendments must be made on the electronic document DICTATION DATE: 01/13/21709 LAST REPAIRER HELPER: HERB 01/13/21709 RPT#: [id number] DC DATE:01/12/21 STATUS: DIS IN [facility] [address] [place] [address] END OF REPORT
--- NOTE | 2021-01-13 10:33 | MORECARE ---
CASE MANAGEMENT DISCHARGE SUMMARY PATIENT: SILVA GONZALES UNIT: [id number] ADM DATE: 01/08/21 AGE: 85 : 34 SEX: M ROOM/BED: D.2214 AUTHOR: TREVER,DOC PHYSICIAN: REFERRING PHYSICIAN: NASREEN BERNARDO MD DATE OF SERVICE: 01/13/21 Case Management Discharge Planning Summary COMMENTS ENTERED DATE: 01/12/21 15:37 CT COMMENT TYPE: Discharge Planning REVIEWER: Gwendolyn Lake PATIENT WILL BE DISCHARGING HOME TODAY WITH HIS DAUGHTER I SPOKE WITH MARCELA AT [facility] ABOUT HER DAD AND CARE, SHE SEEMS VERY MUCH ATTENTIVE TO HIM AND THE CARE THAT HE NEEDS. SHE STATES THAT SHE WAS TOLD BY DR CASTAÑEDA THAT HE DIDN'T NEED THE MAG AND IF HE NEEDS IT THEN SHE NEEDS TO BE TOLD HE NEEDS IT. I HAVE SPOKEN TO RAY WITH [facility] ABOUT MED BOX MANAGEMENT [facility] WILL RESUME CARE. MARCELA IS VERY APPROPRIATE WITH HER DAD AND SPEAKING WITH ME. SHE WENT OVER ALL HIS MEDICATIONS WITH ME AND ASSURED ME THAT SHE HAS EVERYTHING SHE NEEDS FOR HIM. IMM WILL BE MAILED TO [facility] SHE DENIES ANY NEEDS AT THIS TIME. SHE WILL BE THE ONE TO DRIVE HIM HOME. ENTERED DATE: 01/12/21 8:34 CT COMMENT TYPE: Discharge Planning REVIEWER: Gwendolyn Lake LATE ENTRY 01/11/21 @1400 CM attempted to call Marcela multiple times and did not get an answer I did speak with patient's other daughter Natacha, to discuss discharge planning. Natacha states that her dad lives with her sister Marcela where he uses a walker at home. She said that there is a family member with him 30/04. Natacha did state that her dad's PCP was Dr Castañeda He is current with [email or web address] . She asked me to call her sister for other details, because she would know more. I will try to get InTouch with Marcela in the morning DCP REVIEW SUMMARY ANTICIPATED D/C DATE: EXPECTED LOS : 0 CASE STATUS: DCP Complete INITIAL REVIEW: 01/07/2021 INITIAL REVIEWER: Gwendolyn Lake FINAL DISCHARGE DISPOSITION: 06 : Discharged/Trans to Home Under Care of Organized Home Health Service in Anticipation of Skilled Care FINAL REVIEWER: Gwendolyn Lake FINAL REVIEW DATE: 01/13/2021 DCP Focus Questions & Answers QUESTION: ANSWER : PATIENT: SILVA GONZALES ENCOUNTER: [id number] MEDICAL RECORD#: [id number] ADMISSION DATE: 01/08/2021 DISCHARGE DATE: 01/12/2021 ATTENDING MD: HONG ESCOBAR : AGE: 85 MARITAL STATUS: D DC PLAN ID: [id number] FACILITY: [facility] PRINTED ON: 01/13/21 10:33 CT All edits/amendments must be made on the electronic document DICTATION DATE: 01/13/21 1033 HOSPITAL ACCOUNT MANAGER: HERB 01/13/21 1033 RPT#: [id number] DC DATE:01/12/21 STATUS: DIS IN [facility] [address] [place] [address] END OF REPORT
== END 2021-01-12 16:50 | disposition home health service (06) | DRG 640 ==
LOC: D.ER 18:45 → D.MS 21:16 → OBSVTIME 21:16 → D.MS 01-08 13:31
PROVIDERS: Emergency Medicine; Family Medicine; ADMIT Emergency Medicine; ATTEND Emergency Medicine
DX: R62.7 Adult failure to thrive (principal); E43 Unspecified severe protein-calorie malnutrition; G30.9 Alzheimer's disease, unspecified; F02.80 Dementia in other diseases classified elsewhere, unspecified severity, without behavioral disturbance, psychotic disturbance, mood disturbance, and anxiety; I10 Essential (primary) hypertension; N40.0 Benign prostatic hyperplasia without lower urinary tract symptoms; K21.9 Gastro-esophageal reflux disease without esophagitis; E11.9 Type 2 diabetes mellitus without complications; Z95.0 Presence of cardiac pacemaker; Z85.038 Personal history of other malignant neoplasm of large intestine; Z86.73 Personal history of transient ischemic attack (TIA), and cerebral infarction without residual deficits; Z68.20 Body mass index [BMI] 20.0-20.9, adult; E86.0 Dehydration

== ENCOUNTER 2021-02-16 23:38 | Observation (INO) | payer MEDICARE ==
[~2021-02-16] VITALS: Ht 188 cm; Wt 81.8 kg
[2021-02-17 00:08] LABS: BASOPHILS 0.3 % (0-2); EOSINOPHILS 1.8 % (0-7); HEMATOCRIT 38.1 % (42.0-54.0); HEMOGLOBIN 12.6 g/dL (13.5-17.5); IMMATURE GRANULOCYTES 0.3 % (0-5); LYMPHOCYTE ABS# 1.85 10x3/uL (1.32-3.57); LYMPHOCYTES 25.2 % (15-50); MCH 31.1 pg (26.0-34.0); MCHC 33.1 g/dL (31.0-37.0); MCV 94.1 fL (80.0-100.0); MONOCYTES 11.3 % (2-11); NEUTROPHILS 61.1 % (40-80); PLATELET COUNT 194 10x3/uL (130-400); RBC 4.05 10x6/uL (4.20-6.10); RDW 13.4 % (11.5-14.5); WBC 7.4 10x3/uL (4.8-10.8)
[2021-02-17 00:12] LABS: CALC OSMOLALITY 283 mosm/kg (275-300); CALCIUM 9.9 mg/dL (8.5-10.1); CARBON DIOXIDE 29.8 mmol/L (21.0-32.0); CHLORIDE - SERUM 105 mmol/L (98-107); CREATININE - SERUM 1.2 mg/dL (0.6-1.3); GLUCOSE 86 mg/dL (74-106); POTASSIUM - SERUM 4.4 mmol/L (3.5-5.1); SODIUM 141 mmol/L (136-145); UREA NITROGEN 24 mg/dL (7-18); eGFR NON AFRICAN AMERICAN 61 mL/min (90-120)
[2021-02-17 00:16] VITALS: BP 120/68
[2021-02-17 00:18] LABS: ALBUMIN 3.4 g/dL (3.4-5.0); ALKALINE PHOSPHATASE 53 U/L (30-120); ALT (SGPT) 13 U/L (10-68); BILIRUBIN - TOTAL 0.25 mg/dL (0.2-1.3); PRO BNP 380 pg/mL (0-450); PROTEIN - SERUM 6.9 g/dL (6.4-8.2)
[2021-02-17 00:20] LABS: C-REACTIVE PROTEIN < 0.2 mg/dL (0.0-0.9); TROPONIN-I < 0.017 ng/mL (0.000-0.060)
[2021-02-17 01:30] VITALS: BP 115/64
[2021-02-17 02:43] VITALS: BMI 23.1
--- NOTE | 2021-02-17 03:54 | NUR ---
I have reviewed this patient and I concur with the Shift Assessment completed by the Licensed Practical Nurse today this shift.
[2021-02-17 08:34] VITALS: BP 146/69
[2021-02-17 08:54] VITALS: Ht 188 cm; Wt 81.8 kg
--- NOTE | 2021-02-17 11:00 | NUR ---
I have reviewed this patient and I concur with the Shift Assessment completed by the Licensed Practical Nurse today this shift.
[2021-02-17 12:00] LABS: BASOPHILS 0.3 % (0-2); EOSINOPHILS 1.5 % (0-7); HEMATOCRIT 38.4 % (42.0-54.0); HEMOGLOBIN 12.6 g/dL (13.5-17.5); LYMPHOCYTE ABS# 1.51 10x3/uL (1.32-3.57); LYMPHOCYTES 25.5 % (15-50); MCH 31.3 pg (26.0-34.0); MCHC 32.8 g/dL (31.0-37.0); MCV 95.3 fL (80.0-100.0); MEAN PLATELET VOLUME 10.4 fL (7.4-10.4); MONOCYTES 12.2 % (2-11); NEUTROPHIL ABS# 3.58 10x3/uL (1.78-5.38); NEUTROPHILS 60.5 % (40-80); PLATELET COUNT 173 10x3/uL (130-400); RBC 4.03 10x6/uL (4.20-6.10); RDW 13.3 % (11.5-14.5); WBC 5.9 10x3/uL (4.8-10.8)
[2021-02-17 12:49] VITALS: BP 129/75
--- NOTE | 2021-02-17 14:53 | MORECARE ---
CASE MANAGEMENT DISCHARGE SUMMARY PATIENT: SILVA GONZALES UNIT: [id number] ADM DATE: 02/17/21 AGE: 85 : 34 SEX: M ROOM/BED: D.2220 AUTHOR: TREVER,DOC PHYSICIAN: REFERRING PHYSICIAN: RAJEEV RAYGOZA MD DATE OF SERVICE: 02/17/21 Case Management Discharge Planning Summary COMMENTS ENTERED DATE: 02/17/21 14:44 CT COMMENT TYPE: Discharge Planning REVIEWER: Gwendolyn Lake CM met with patient to complete initial dc planning assessment. CM educated patient on the CM role and verbal consent given by patient to complete assessment. Patient lives at home with his where he is independent with his care. At discharge patient plans to return home and feels this is a safe discharge. CM discussed availability of home health, rehab services, and medical equipment. Patient denied known discharge needs at this time. Dr Triplett is his PCP and he uses [facility]. 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 CM will continue to follow and will assist as needed with dc plans/needs. DCP REVIEW SUMMARY ANTICIPATED D/C DATE: EXPECTED LOS : CASE STATUS: DCP Initiated INITIAL REVIEW: 02/17/2021 INITIAL REVIEWER: Gwendolyn Lake FINAL DISCHARGE DISPOSITION: 01 : Home or Self Care (Routine Discharge) FINAL REVIEWER: FINAL REVIEW DATE: DCP Focus Questions & Answers QUESTION: ANSWER : PATIENT: SILVA GONZALES ENCOUNTER: [id number] MEDICAL RECORD#: [id number] ADMISSION DATE: 02/17/2021 DISCHARGE DATE: ATTENDING MD: RAJEEV RICHARDSON : AGE: 85 MARITAL STATUS: D DC PLAN ID: [id number] FACILITY: [facility] PRINTED ON: 02/17/21 14:53 CT All edits/amendments must be made on the electronic document DICTATION DATE: 02/17/211452 PUBLICIST: HERB 02/17/211452 RPT#: [id number] DC DATE: STATUS: ADM IN [facility] [address] [place] [address] END OF REPORT
--- NOTE | 2021-02-17 16:30 | NUR ---
ATTEMPT PHONE CALL MADE TO PT DAUGHTER FOR DC INSTRUCTIONS. NO ANSWER. UNABLE TO LEAVE VM.
[2021-02-17 16:40] VITALS: BP 137/69
--- NOTE | 2021-02-17 17:07 | NUR ---
ALL DISCHARGE INSTRUCTIONS COVERED WITH PT DAUGHTER. VERBAL AND WRITTEN. PT DAUGHT DENIES FURTHER QUESTIONS/CONCERNS/NEEDS. PIV TO LEFT AC REMOVED WITH CATHETER TIP INTACT. DRESSING APPLIED. HOSPITAL DEPUTY CLERK OF COURT CALLED TO TRANSPORT PT FROM ROOM. PT AND PT DAUGHTER DENY FURTHER NEEDS. ALL SIGNED DC PAPERS PLACED IN PT CHART.
--- NOTE | 2021-02-17 17:12 | NUR ---
PT TRANSPORTED FROM ROOM VIA WHEELCHAIR ESCORTED BY HOSPITAL TOOL CHASER STAFF. PT AND PT DAUGHTER DENY FURTHER NEEDS/QUESTIONS/CONCERNS. PT DAUGHTER STATES THAT SHE AHS ALL OF PT PERSONAL BELONGINGS.
--- NOTE | 2021-02-17 17:23 | MORECARE ---
CASE MANAGEMENT DISCHARGE SUMMARY PATIENT: SILVA GONZALES UNIT: [id number] ADM DATE: 02/17/21 AGE: 85 : 34 SEX: M ROOM/BED: D.2220 AUTHOR: TREVER,DOC PHYSICIAN: REFERRING PHYSICIAN: RAJEEV RAYGOZA MD DATE OF SERVICE: 02/17/21 Case Management Discharge Planning Summary COMMENTS ENTERED DATE: 02/17/21 14:44 CT COMMENT TYPE: Discharge Planning REVIEWER: Gwendolyn Lake CM met with patient to complete initial dc planning assessment. CM educated patient on the CM role and verbal consent given by patient to complete assessment. Patient lives at home with his where he is independent with his care. At discharge patient plans to return home and feels this is a safe discharge. CM discussed availability of home health, rehab services, and medical equipment. Patient denied known discharge needs at this time. Dr Triplett is his PCP and he uses [facility]. 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 CM will continue to follow and will assist as needed with dc plans/needs. DCP REVIEW SUMMARY ANTICIPATED D/C DATE: EXPECTED LOS : CASE STATUS: DCP Initiated INITIAL REVIEW: 02/17/2021 INITIAL REVIEWER: Gwendolyn Lake FINAL DISCHARGE DISPOSITION: 01 : Home or Self Care (Routine Discharge) FINAL REVIEWER: FINAL REVIEW DATE: DCP Focus Questions & Answers QUESTION: ANSWER : PATIENT: SILVA GONZALES ENCOUNTER: [id number] MEDICAL RECORD#: [id number] ADMISSION DATE: 02/17/2021 DISCHARGE DATE: 02/17/2021 ATTENDING MD: RAJEEV RICHARDSON : AGE: 85 MARITAL STATUS: D DC PLAN ID: [id number] FACILITY: [facility] PRINTED ON: 02/17/21 17:23 CT All edits/amendments must be made on the electronic document DICTATION DATE: 02/17/211722 [employer] PRINCIPAL: HERB 02/17/211722 RPT#: [id number] DC DATE:02/17/21 STATUS: DIS IN [facility] [address] [place] [address] END OF REPORT
--- NOTE | 2021-02-18 16:05 | MORECARE ---
CASE MANAGEMENT DISCHARGE SUMMARY PATIENT: SILVA GONZALES UNIT: [id number] ADM DATE: 02/17/21 AGE: 85 : 34 SEX: M ROOM/BED: D.2220 AUTHOR: TREVER,DOC PHYSICIAN: REFERRING PHYSICIAN: RAJEEV RAYGOZA MD DATE OF SERVICE: 02/18/21 Case Management Discharge Planning Summary COMMENTS ENTERED DATE: 02/17/21 14:44 CT COMMENT TYPE: Discharge Planning REVIEWER: Gwendolyn Lake CM met with patient to complete initial dc planning assessment. CM educated patient on the CM role and verbal consent given by patient to complete assessment. Patient lives at home with his where he is independent with his care. At discharge patient plans to return home and feels this is a safe discharge. CM discussed availability of home health, rehab services, and medical equipment. Patient denied known discharge needs at this time. Dr Triplett is his PCP and he uses [facility]. 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 CM will continue to follow and will assist as needed with dc plans/needs. DCP REVIEW SUMMARY ANTICIPATED D/C DATE: EXPECTED LOS : CASE STATUS: DCP Initiated INITIAL REVIEW: 02/17/2021 INITIAL REVIEWER: Gwendolyn Lake FINAL DISCHARGE DISPOSITION: 01 : Home or Self Care (Routine Discharge) FINAL REVIEWER: FINAL REVIEW DATE: DCP Focus Questions & Answers QUESTION: ANSWER : PATIENT: SILVA GONZALES ENCOUNTER: [id number] MEDICAL RECORD#: [id number] ADMISSION DATE: 02/17/2021 DISCHARGE DATE: 02/17/2021 ATTENDING MD: RAJEEV RICHARDSON : AGE: 85 MARITAL STATUS: D DC PLAN ID: [id number] FACILITY: [facility] PRINTED ON: 02/18/21 16:05 CT All edits/amendments must be made on the electronic document DICTATION DATE: 02/18/211604 COAT EXAMINER: HERB 02/18/21 160 RPT#: [id number] DC DATE:02/17/21 STATUS: DIS IN [facility] [address] [place] [address] END OF REPORT
== END 2021-02-17 17:14 | disposition home or self-care (01) ==
LOC: D.ER 23:38 → OBSVTIME 02-17 01:43 → D.MS 02-17 01:43
PROVIDERS: Family Medicine; ADMIT Emergency Medicine; ATTEND Emergency Medicine
DX: R07.9 Chest pain, unspecified (principal); E11.9 Type 2 diabetes mellitus without complications; Z86.73 Personal history of transient ischemic attack (TIA), and cerebral infarction without residual deficits; I10 Essential (primary) hypertension; Z95.0 Presence of cardiac pacemaker; K21.9 Gastro-esophageal reflux disease without esophagitis; G30.9 Alzheimer's disease, unspecified; F02.80 Dementia in other diseases classified elsewhere, unspecified severity, without behavioral disturbance, psychotic disturbance, mood disturbance, and anxiety; Z79.84 Long term (current) use of oral hypoglycemic drugs; N40.0 Benign prostatic hyperplasia without lower urinary tract symptoms; D64.9 Anemia, unspecified; R62.7 Adult failure to thrive; Z85.038 Personal history of other malignant neoplasm of large intestine; Z68.23 Body mass index [BMI] 23.0-23.9, adult